=== PATIENT | male | born 1940 | race Caucasian/White ===

== ENCOUNTER → 2016-09-11 | Day surgery (SDC) | payer OTHER ==
[2016-08-05 11:23] VITALS: BMI 33.0
--- NOTE | 2016-08-05 11:53 | PAT Medication Instructions ---
Service Date Aug 05, 2016. Current Home Medication List Allopurinol (Zyloprim *), 300 MG PO QPM Aspirin Enteric Coated (Ecotrin Or Generic *), 81 MG PO QPM Furosemide (Lasix), 20 MG PO QAM Latanoprost 0.005% Oph (Xalatan 0.005% Oph), 1 DROP OPB HS Lisinopril (Zestril), 10 MG PO BID Nitroglycerin (Nitrostat), 0.4 MG UT PRN Omeprazole (Prilosec), 20 MG PO QAM Oxycodone/Acetaminophen 10MG/325MG (Percocet 10MG/325MG), 1 TAB PO Q6H PRN for N Potassium Chloride (Micro-K Ext Rel), 10 MEQ PO QPM Prednisone (Prednisone), 5 MG PO QAM Pregabalin (Lyrica), 150 MG PO QAM Rosuvastatin Calcium (Crestor), 10 MG PO QPM Sotalol HCl (Sotalol HCl), 80 MG PO BID Tamsulosin Hcl (Flomax *), 0.4 MG PO QAM Warfarin Sod (Coumadin), MONDAYS Warfarin Sod (Coumadin), 2.5 MG PO [id number] Medication Instructions For Your Scheduled Surgery - Check with surgeon/driver education road instructor for instructions: Warfarin Sod (Coumadin), MONDAYS Warfarin Sod (Coumadin), 2.5 MG PO [id number] Aspirin Enteric Coated (Ecotrin Or Generic *), 81 MG PO QPM - Hold the following medications the morning of surgery: Tamsulosin Hcl (Flomax *), 0.4 MG PO QAM Furosemide (Lasix), 20 MG PO QAM Lisinopril (Zestril), 10 MG PO BID - Take the following medications the morning of surgery with a sip of water: Sotalol HCl (Sotalol HCl), 80 MG PO BID Pregabalin (Lyrica), 150 MG PO QAM Prednisone (Prednisone), 5 MG PO QAM Omeprazole (Prilosec), 20 MG PO QAM Nitroglycerin (Nitrostat), 0.4 MG UT PRN (if needed) Oxycodone/Acetaminophen 10MG/325MG (Percocet 10MG/325MG), 1 TAB PO Q6H PRN for N (okay to take up to 4 hours prior to surgery if needed) - Hold the following medications as scheduled the night before surgery: Lisinopril (Zestril), 10 MG PO BID - Take the following medications as scheduled the night before surgery: Sotalol HCl (Sotalol HCl), 80 MG PO BID Rosuvastatin Calcium (Crestor), 10 MG PO QPM Potassium Chloride (Micro-K Ext Rel), 10 MEQ PO QPM Nitroglycerin (Nitrostat), 0.4 MG UT PRN (if needed) Oxycodone/Acetaminophen 10MG/325MG (Percocet 10MG/325MG), 1 TAB PO Q6H PRN for N (if needed) Latanoprost 0.005% Oph (Xalatan 0.005% Oph), 1 DROP OPB HS Allopurinol (Zyloprim *), 300 MG PO QPM If you have any questions please call us at [phone] (Nikki Frances PA-C) or [phone] or [phone]
[2016-08-05 12:23] LABS: BASO % 0.4 %; BASO ABS # 0.05 K/uL (0-0.2); COMPLETE YES; EOS % 0.6 %; HEMATOCRIT 41.9 % (42-52); IG% 0.4 %; LYMPH % 19.4 %; MEAN CORPUSCULAR HEMOGLOBIN 32.5 pg (25-34); MEAN CORPUSCULAR HGB CONC 32.2 g/dl (32-36); MEAN PLATELET VOLUME 8.8 fL (7.4-10.4); MONO % 10.3 %; NEUT % 68.9 %; PLATELET COUNT 184 K/uL (130-400); RED BLOOD COUNT 4.15 M/uL (4.7-6.1); WHITE BLOOD COUNT 11.32 K/uL (4.8-10.8)
[2016-08-05 12:26] LABS: URINE APPEARANCE CLOUDY (CLEAR); URINE BILIRUBIN NEG (NEG); URINE COLOR DK YELLOW; URINE EPITHELIAL CELL AUTO >30 /lpf (0-5); URINE NITRITE NEG (NEG); URINE PH 6.5 (4.5-7.5); UROBILINOGEN NEG (NEG)
[2016-08-05 12:27] LABS: MANUAL MICROSCOPIC REQUIRED? NO; REVIEW REQ? YES
[2016-08-05 12:31] LABS: INR 2.6 (0.9-1.1); PARTIAL THROMBOPLASTIN RATIO 1.3; PROTHROMBIN TIME (PATIENT) 28.5 SECONDS (9.0-12.0)
[2016-08-05 12:36] LABS: URINE MUCUS PRESENT (NONE PRSENT)
[2016-08-05 12:41] LABS: BUN/CREATININE RATIO 13.7 (10-20); CREATININE 1.2 mg/dl (0.60-1.40); POTASSIUM 4.4 mmol/L (3.5-5.1)
--- NOTE | 2016-08-24 21:02 | HISTORY & PHYSICAL EXAMINATION ---
DATE OF ADMISSION: 08/28/2016 SUBJECTIVE AND CHIEF COMPLAINT: Left knee pain. HISTORY OF PRESENT ILLNESS: The patient is a 76-year-old male who is here for left knee pain. He says that the pain is getting progressively worse over time. He describes the pain as aching, sharp and throbbing. The pain occurs more with twisting motions and going up and down stairs. He has had a few episodes with walking. He has failed conservative therapies of injections and physical therapy. He would like to proceed with surgical procedure. PAST MEDICAL HISTORY: Significant for heart attack in 2003, hypertension, hypercholesterolemia, sleep apnea, TIA x2, GERD, prostate cancer. PAST SURGICAL HISTORY: Bypass surgery, carpal tunnel release bilateral hands, right knee replacement, prostate seeds, cholecystectomy. SOCIAL HISTORY: He denies alcohol use, denies smoking or tobacco use. Denies IV drug use or illegal drug use. He lives in a 2-story house. He is currently retired. PAST FAMILY HISTORY: Dad had a heart attack. Brother also had a heart attack. MEDICATIONS: Prilosec 20 mg 1 capsule daily, allopurinol 300 mg 1 tab daily, lisinopril 10 mg 1 tab daily, Flomax 0.4 mg 1 tab daily, prednisone 5 mg 1 tab daily, sotalol 80 mg 1-1/2 tablets 2 times a day, furosemide 20 mg 1 tablet daily, Simcor 500 mg/40 mg 1 tablet daily, Coumadin 5 mg 1 tablet daily, Lyrica 150 mg 1 tab daily, Crestor 10 mg 1 tab daily. ALLERGIES: TO ADHESIVES, NIFEDIPINE, HEPARIN ANALOGUES AND AMIODARONE. REVIEW OF SYSTEMS: He denies fevers, chills, headaches, weight loss, double vision, blurry vision, sore throat, hearing loss, tremors, dizziness, numbness or tingling, tired, thirsty, hot and cold intolerance, abdominal pain, nausea, vomiting, diarrhea, heartburn, chest pain, swelling into the legs or feet, frequency going to the bathroom, pain or burning with urination, wheezing, cough, shortness of breath, depression, thoughts of harming himself or harm others, nervousness or anxiousness. He is positive for joint pain, stiffness and swelling of the left knee. OBJECTIVE: GENERAL APPEARANCE: The patient is a 76-year-old male sitting in no acute distress. He is well dressed, well nourished. He is awake, alert and oriented x3. PHYSICAL EXAMINATION: VITAL SIGNS: He is 5 feet 10 inches tall, 232 pounds. Blood pressure 141/76. HEENT: Extraocular movement is intact. PERRLA. Mucosa is moist. No septal deviation. NECK: Supple with no lymphadenopathy, no JVD, no thyromegaly. HEART: Asystolic murmur of grade 3 is noted in the aortic position. LUNGS: Clear to auscultation and distant. There is no wheezing or rhonchi. ABDOMEN: Soft, nontender, nondistended. Normal bowel sounds. No hepatosplenomegaly. EXTREMITIES: Paying particular attention to the left knee, he is able to extend to 0 degrees, flex to 90 degrees. He has pain along the medial and lateral joint lines. Positive Petra's test. Negative Savita. Negative anterior drawer. Negative posterior drawer. Negative valgus and varus stress tests. NEUROLOGIC: Cranial nerves II-XII are intact. Pulses were compared bilaterally and were equal. IMAGING: MRI of the left knee demonstrates tricompartmental degenerative changes including involvement of articular cartilage, degenerative meniscal signal bilaterally, tears of posterior horns medial and lateral meniscus suspected, question minimal strain medial collateral ligament, question element of prepatellar bursitis, possible Wagner/popliteal cyst. IMPRESSION: Left knee medial and lateral meniscal tears. PLAN: The patient is scheduled for a left knee PMM/PLM. He has tried conservative therapies which include cortisone injections, physical therapy, nonsteroidal anti-inflammatories without any relief. He would like to proceed with a left knee PMM and PLM. Risks and benefits to the surgery were discussed that were included but not limited to infection, DVT, pain, stiffness, need for revision surgery, failure to relieve all symptoms, progressive arthritis, damage to blood vessels, damage to nerves, and risks of anesthesia were all discussed and he wishes to proceed. All questions were answered to his satisfaction. Per his steam finisher, his warfarin should be held per the instructions of his surgeon, probably for 5 days. MTDD
--- NOTE | 2016-09-04 10:10 | HISTORY & PHYSICAL EXAMINATION ---
DATE OF ADMISSION: 09/11/2016 SUBJECTIVE AND CHIEF COMPLAINT: Left knee pain. HISTORY OF PRESENT ILLNESS: The patient is a 76-year-old male who is here for left knee pain. He says that the pain is getting progressively worse over time. He describes the pain as aching, sharp and throbbing. The pain occurs more with twisting motions and going up and down stairs. He has had a few episodes of locking with walking. He has failed conservative therapies of injections and physical therapy. He would like to proceed with surgical procedure. PAST MEDICAL HISTORY: Significant for a heart attack in 2003, hypertension, hypercholesterolemia, sleep apnea, TIA x2, GERD, and prostate cancer. PAST SURGICAL HISTORY: Bypass surgery, carpal tunnel release of bilateral hands, right knee replacement, prostate seeds, and cholecystectomy. SOCIAL HISTORY: He denies alcohol use. Denies smoking or tobacco use. Denies IV drug use or illegal drug use. Lives in a 2-story house. He is currently retired. PAST FAMILY HISTORY: Dad had a heart attack. Brother had a heart attack. MEDICATIONS: Prilosec 20 mg 1 capsule daily, allopurinol 300 mg 1 tab daily, lisinopril 10 mg 1 tab daily, Flomax 0.4 mg 1 tab daily, prednisone 5 mg 1 tab daily, sotalol 80 mg 1-1/2 tabs 2 times daily, furosemide 20 mg 1 tab daily, Simcor 500 mg/40 mg 1 tab daily, Coumadin 5 mg 1 tab daily, Lyrica 150 mg 1 tab daily, Crestor 10 mg 1 tab daily. ALLERGIES: TO ADHESIVES, NIFEDIPINE, HEPARIN ANALOGS, AND AMIODARONE. REVIEW OF SYSTEMS: He denies fevers, chills, headaches, weight loss, double vision, blurry vision, sore throat, hearing loss, tremors, dizziness, numbness or tingling, tired, thirsty, hot and cold intolerance, abdominal pain, nausea, vomiting, diarrhea, heartburn, chest pain, swelling into the legs or feet, frequency going to the bathroom, pain or burning with urination, wheezing, cough, shortness of breath, depression, thoughts to harm himself or harm others, nervousness or anxiousness. He is positive for joint pain, stiffness and swelling of the left knee. OBJECTIVE: GENERAL APPEARANCE: The patient is a 76-year-old male who is sitting in the exam room, in no acute distress. He is well dressed, well nourished. He is awake, alert and oriented x3. PHYSICAL EXAMINATION: VITAL SIGNS: He is 5 feet 10 inches tall, 232 pounds. Blood pressure 141/76. HEENT: Extraocular movements are intact. PERRLA. Mucosa is moist. No septal deviation. NECK: Supple with no lymphadenopathy, no JVD, no thyromegaly. HEART: A systolic murmur of grade 3 is noted in the aortic position. LUNGS: Clear to auscultation and distant. No wheezing or rhonchi. ABDOMEN: Soft, nontender, nondistended. Normal bowel sounds. No hepatosplenomegaly. EXTREMITIES: Paying particular attention to the left knee, he is able to extend to 0 degrees, flex to 90 degrees actively. He has pain along the medial and lateral joint line. He has a positive Petra's test. Negative Savita, anterior drawer, posterior drawer. He has negative valgus and varus stress test. NEUROLOGIC: Cranial nerves II-XII are intact. Pulses were compared bilaterally and were equal. IMAGING: MRI of the left knee demonstrates tricompartmental degenerative changes including involvement of the articular cartilage, degenerative meniscal signal bilaterally, tears of the posterior horns medially and laterally of the meniscus are suspected, question minimal strain medial collateral ligament, question element of prepatellar bursitis, possible Wagner cyst. IMPRESSION: Left knee medial and lateral meniscal tears. PLAN: The patient is scheduled to have a left knee PMM/PLM. He has tried conservative therapies which include cortisone injections, physical therapy, and nonsteroidal anti-inflammatories without any relief. He would like to proceed with a left knee arthroscopy, PMM/PLM. Risks and benefits to surgery were discussed that included but not limited to infection, DVT, pain, stiffness, need for revision surgeries, failure to relieve all symptoms, progressive arthritis, damage to blood vessels, damage to nerves, and risks of anesthesia were all discussed and he wishes to proceed. All questions were answered to his satisfaction. Per his icebox man, his warfarin should be held for 5 days prior to his surgery. EVY
[~2016-09-11] VITALS: Ht 177.8 cm; Wt 104.5 kg
[~2016-09-11] MED LIST: ACETAMINOPHEN 325 MG TAB PO PRN; ALL300 PO; ASPEC81 PO; ATROPINE SULFATE 0.1 MG/ML 5ML SYR IV PRN; BTP80 PO; BUPIVACAINE 0.5 % 5 MG/1 ML MPF 30ML VIAL ONE; CEFAZOLIN 2000 MG/60 ML D5W IV SCH; CMD/25 PO; CMD5; CRS/10 PO; DEXAMETHASONE SOD INJ 4 MG/ML VIAL ONE; EpHEDrine SULFATE INJ 50 MG/ML AMP IV PRN; EpHEDrine SULFATE INJ 50 MG/ML AMP ONE; FENTANYL CITRATE INJ 50 MCG/1 ML 2 ML VIAL IV PRN; FENTANYL CITRATE INJ 50 MCG/1 ML 2 ML VIAL ONE; FLM4 PO; FURO-85 PO; LACTATED RINGER'S 1000ML 1,000 ML IV SCH; LATA0.009 OPB; LIDOCAINE HCL 2% 2 ML VIAL (20MG/ML) ONE; LIDOCAINE/EPINEPHRINE 1% 20 ML VIAL ONE; LISI-461 PO; MIDAZOLAM HCL 1 MG/ML 2ML VIAL ONE; NTRGSL/4 UT; ONDANSETRON INJ 2 MG/ML 2 ML VIAL IV PRN; ONDANSETRON INJ 2 MG/ML 2 ML VIAL ONE; OXYC-106 PO; OXYCODONE HCL IR 5 MG TAB (IMMEDIATE RELEASE) PO PRN; PHENYLEPHRINE HCL INJ 10 MG/ML VIAL ONE; POTA10CA28 PO; PRED-301 PO; PREG1CAP70 PO; PRLSR20 PO; PROPOFOL IV EMULSION 10 MG/ML 20 ML VIAL IV ONE; RXC5 PO
[2016-09-11 11:58] VITALS: BP 156/78; PULSE 67; TEMP 36.7; O2SAT 97; Ht 177.8 cm; Wt 104.5 kg
[2016-09-11 12:17] LABS: INR 1.2 (0.9-1.1); PARTIAL THROMBOPLASTIN RATIO 1.2; PROTHROMBIN TIME (PATIENT) 12.7 SECONDS (9.0-12.0)
--- NOTE | 2016-09-11 12:32 | History & Physical Bridge Note ---
H&P Re-Evaluation Bridge Note: I have examined the patient, reviewed the History & Physical and in the interval since the performance of the History & Physical I have noted the following changes of clinical significance: No changes noted
--- NOTE | 2016-09-11 14:28 | [facility] Post Operative Brief Note ---
Immediate Operative Summary Operative Date Sep 11, 2016. Pre-Operative Diagnosis Left knee medial and lateral meniscal tears Post-Operative Diagnosis same as preoperative diagnosis Procedure(s) Performed Left Knee Arthroscopy with Partial Medial and Lateral Menisectomies Surgeon Dr. Cobian Photography Colorist Surgeon(s) 0 Estimated Blood Loss 1ml Findings above Specimens none Drains 0 Anesthesia geta Complication(s) None Disposition Recovery Room / PACU
--- NOTE | 2016-09-11 14:34 | Discharge Instructions ---
Discharge Instructions Date of Service Sep 11, 2016. Admission Reason for Admission: Left Knee Medial Meniscus Tear, Lateral Meniscus T Discharge Discharge Diagnosis / Problem: Left knee medial and lateral menisectomy Discharge Goals Goal(s): Decrease discomfort, Improve function Activity Recommendations Activity Limitations: per Instructions/Follow-up section . Instructions / Follow-Up Instructions / Follow-Up ACTIVITY RECOMMENDATIONS: * You may walk on the leg with or without crutches as comfort permits. * Bending of the knee should start at once. * Do not shower for 48 hours following surgery. SPECIAL CARE INSTRUCTIONS: * You may cleanse the skin adjacent to the small wounds with soap and water at the time of the first dressing change. * The application of an ice bag to the front and sides of the knee will decrease swelling and discomfort for the first 48 hours. * The small incisions may be sore and develop bruising. This bruising does not require any special care. SPECIAL PRECAUTIONS: * If you experience unusual pain unrelieved by prescriptions, temperature elevation (100 degrees F. or above) or progressive swelling or bleeding, you should contact our office at for further evaluation. * You may have been prescribed pain medication. If you experience nausea and/or fine skin rash, discontinue this medication and contact our office at for an alternate medication. DRESSING: * Dressing should be comfortable and absorb any leakage of fluid and/or blood. * The dressing may become moist or bloodstained. * Dressing may be removed 48 hours after surgery and bandaids placed over the small surgical incisions. If can be removed sooner if it becomes very soiled or loose. * Bandaids may be used over next several days as needed and can be discontinued when there is not further drainage from the wounds. FOLLOW UP VISIT: If appointment is not already scheduled: Please call [facility] to make a follow-up appointment for your surgery at 10-14 days after your surgery. Current Hospital Diet Patient's current hospital diet: Regular Diet Discharge Diet Recommended Diet: Regular Diet Procedures Procedures Performed: Left Knee Arthroscopy with Partial Medial and Lateral Menisectomies Pending Studies Studies pending at discharge: no Medical Emergencies . Who to Call and When: Medical Emergencies: If at any time you feel your situation is an emergency, please call 911 immediately. . Non-Emergent Contact Non-Emergency issues call your: Surgeon Call Non-Emergent contact if: temperature is above 101, your pain is worsening , wound has increased drainage, wound has increased redness . "Provider Documentation" section prepared by Garrett Westbrook. VTE Core Measure Inpt VTE Proph given/why not?: Treatment not indicated [place] Drug Monitoring Program Search Results: patient reviewed within database, no issues identified
--- NOTE | 2016-09-11 15:13 | Anesthesiology Progress Note ---
Anesthesia Post Op Note Date & Time Sep 11, 2016 at 15:13 Vital Signs Pain Intensity: 0 Vital Signs Past 12 Hours Date Time Temp Pulse Resp B/P Pulse Ox O2 Delivery O2 Flow Rate FiO2 09/11/16 15:07 36.5 57 16 126/83 95 Nasal Cannula 2 09/11/16 15:06 58 18 09/11/16 15:06 58 18 94 09/11/16 15:05 126/83 09/11/16 15:01 62 19 09/11/16 15:01 63 19 125/77 90 09/11/16 15:00 141/98 09/11/16 14:56 60 16 09/11/16 14:56 63 16 97 09/11/16 14:55 118/76 09/11/16 14:51 60 12 97 09/11/16 14:51 60 12 09/11/16 14:50 63 17 09/11/16 14:50 65 17 137/69 96 09/11/16 14:45 63 21 115/76 97 09/11/16 14:45 61 21 09/11/16 14:40 62 14 09/11/16 14:40 62 14 117/74 96 09/11/16 14:35 36.4 60 15 109/77 96 Mask 10 09/11/16 14:35 63 13 97 09/11/16 14:35 64 13 09/11/16 11:58 36.7 67 18 156/78 97 Room Air Notes Mental Status: alert / awake / arousable, participated in evaluation Pt Amnestic to Procedure: Yes Nausea / Vomiting: adequately controlled Pain: adequately controlled Airway Patency, RR, SpO2: stable & adequate BP & HR: stable & adequate Hydration State: stable & adequate Anesthetic Complications: no major complications apparent
--- NOTE | 2016-09-11 15:17 | OPERATIVE REPORT ---
DATE OF OPERATION: 09/11/2016 PREOPERATIVE DIAGNOSES: Left knee medial meniscal tear, lateral meniscal tear. POSTOPERATIVE DIAGNOSES: Same. PROCEDURES: Left knee partial medial meniscectomy, partial lateral meniscectomy. SURGEON: Dr. Cobian. BARREL RAISER HELPER: None. ANESTHESIA: General endotracheal anesthesia. SPECIMENS: None. COMPLICATIONS: None. ESTIMATED BLOOD LOSS: Minimal. INDICATIONS: The patient is a 76-year-old male with progressively left knee pain. He has failed conservative measures including injection and rehab. Failing conservative measures, he wished to proceed with arthroscopy. Risks, benefits, and alternatives of surgery including but not limited to infection, DVT, pain, stiffness, need for revision surgery, failure to relieve all symptoms, damage to blood vessels, damage to nerves, risks of anesthesia were discussed with the patient and he wished to proceed. DESCRIPTION OF PROCEDURE: The patient was identified, laterality was confirmed and marked. He received a preoperative antibiotic. He was transferred to the operating room, placed in the supine position, induced general endotracheal anesthesia. A well-padded tourniquet was placed on the thigh but not utilized during the case. Port sites were anesthetized with 1% lidocaine with epinephrine. I made a standard anterolateral room for made a stab incision, bluntly entered the suprapatellar pouch and spinal localization established anteromedial portal. He had grade 4 change both of the patella as well as the trochlea. He had grade 3 change with some deviating and significant degeneration a small region of grade 4 change in the cartilage of the medial femoral condyle, grade 2 change of cartilage of the medial tibial plateau. Undersurface horizontal cleavage type tear of the posterior horn of the medial meniscus. This was debrided back to a stable base utilizing a shaver. The ACL and PCL were intact. He had degenerative tearing of the posterior body and anterior horn of the lateral meniscus. This was debrided back to a stable base utilizing a shaver. All instrumentation was then removed from the knee. Portal sites were closed with nylon. Sterile dressing was applied. All needle and sponge counts were correct at the end of the procedure. The patient was transferred to the PACU in stable condition without apparent complication. I attest to the content of the Intraoperative Record and any orders documented therein. Any exceptio ns are noted below.
[2016-09-11 15:20] VITALS: BP 134/66; PULSE 60; TEMP 36.6; O2SAT 92
[2016-09-11 15:50] VITALS: BP 117/60; PULSE 57; O2SAT 98
[2016-09-11 16:20] VITALS: BP 125/68; PULSE 67; TEMP 36.4; O2SAT 95
== END | disposition home or self-care (01) ==
LOC: C.ACU 11:31
PROVIDERS: ATTEND Orthopaedic Surgery
DX: M23.242 Derangement of anterior horn of lateral meniscus due to old tear or injury, left knee (principal); M23.262 Derangement of other lateral meniscus due to old tear or injury, left knee; M23.222 Derangement of posterior horn of medial meniscus due to old tear or injury, left knee; I25.10 Atherosclerotic heart disease of native coronary artery without angina pectoris; I25.2 Old myocardial infarction; I10 Essential (primary) hypertension; I48.91 Unspecified atrial fibrillation; E78.00 Pure hypercholesterolemia, unspecified; M10.9 Gout, unspecified; K21.9 Gastro-esophageal reflux disease without esophagitis; G47.33 Obstructive sleep apnea (adult) (pediatric); Z86.73 Personal history of transient ischemic attack (TIA), and cerebral infarction without residual deficits; Z98.890 Other specified postprocedural states; Z95.1 Presence of aortocoronary bypass graft; Z68.33 Body mass index [BMI] 33.0-33.9, adult; Z98.41 Cataract extraction status, right eye; Z98.42 Cataract extraction status, left eye; Z96.651 Presence of right artificial knee joint; Z85.46 Personal history of malignant neoplasm of prostate; Z90.49 Acquired absence of other specified parts of digestive tract; Z79.899 Other long term (current) drug therapy; Z79.01 Long term (current) use of anticoagulants; E66.9 Obesity, unspecified; Z82.49 Family history of ischemic heart disease and other diseases of the circulatory system; Z80.42 Family history of malignant neoplasm of prostate

== ENCOUNTER 2017-10-01 05:09 | Inpatient (IN) | payer OTHER ==
[2017-08-31 14:01] VITALS: BMI 35.0
--- NOTE | 2017-08-31 14:43 | PAT Medication Instructions ---
Service Date Aug 31, 2017. Current Home Medication List Allopurinol (Zyloprim), 300 MG PO QPM Aspirin (Aspirin Ec), 81 MG PO QPM Furosemide (Lasix), 20 MG PO QAM Hydrocodone/Acetaminophen 10MG/325MG ([place] 10MG/325MG), 1 TAB PO Q6-8H Latanoprost (Xalatan 0.005% Oph Kimberly), 1 DROPS OP HS Lisinopril (Zestril), 10 MG PO BID Nitroglycerin (Nitrostat), 0.4 MG UT PRN Omeprazole (Prilosec), 20 MG PO QAM Prednisone (Prednisone), 5 MG PO QAM Pregabalin (Lyrica), 200 MG PO NOON Rosuvastatin Calcium (Crestor), 10 MG PO QPM Sotalol HCl (Sotalol HCl), 80 MG PO BID Tamsulosin Hcl (Flomax), 0.4 MG PO QAM Warfarin Sod (Coumadin), MONDAYS Warfarin Sod (Coumadin), 2.5 MG PO [id number] [Potassium Citrate], 10 MG PO QPM Medication Instructions For Your Scheduled Surgery -Continue as directed: Nitroglycerin (Nitrostat), 0.4 MG UT PRN -Follow your instructions from the [facility]: Warfarin Sod (Coumadin), MONDAYS Warfarin Sod (Coumadin), 2.5 MG PO [id number] - Hold the following medications 24 hours prior to surgery: Lisinopril (Zestril), 10 MG PO BID - Hold the following medications the morning of surgery: Furosemide (Lasix), 20 MG PO QAM Tamsulosin Hcl (Flomax), 0.4 MG PO QAM - Take the following medications the morning of surgery with a sip of water: Hydrocodone/Acetaminophen 10MG/325MG ([place] 10MG/325MG), 1 TAB PO Q6-8H (if needed, can be taken up to four hours before surgery) Omeprazole (Prilosec), 20 MG PO QAM Prednisone (Prednisone), 5 MG PO QAM Sotalol HCl (Sotalol HCl), 80 MG PO BID - Take the following medications as scheduled the night before surgery: Allopurinol (Zyloprim), 300 MG PO QPM Aspirin (Aspirin Ec), 81 MG PO QPM Hydrocodone/Acetaminophen 10MG/325MG ([place] 10MG/325MG), 1 TAB PO Q6-8H (if needed) Latanoprost (Xalatan 0.005% Oph Kimberly), 1 DROPS OP HS Pregabalin (Lyrica), 200 MG PO NOON Rosuvastatin Calcium (Crestor), 10 MG PO QPM Sotalol HCl (Sotalol HCl), 80 MG PO BID [Potassium Citrate], 10 MG PO QPM If you have any questions please call us at [phone] or [phone] or [phone]
[2017-08-31 15:19] LABS: BASO % 0.4 %; BASO ABS # 0.04 K/uL (0-0.2); EOS % 0.7 %; EOS ABS # 0.07 K/uL (0-0.5); HEMATOCRIT 40.1 % (42-52); HEMOGLOBIN 12.9 g/dL (14.0-18.0); IG# 0.04 K/uL (0.00-0.02); LYMPH % 23.4 %; LYMPH ABS # 2.42 K/uL (1.2-3.4); MEAN CELL VOLUME 98.3 fL (80-100); MEAN CORPUSCULAR HEMOGLOBIN 31.6 pg (25-34); MEAN CORPUSCULAR HGB CONC 32.2 g/dl (32-36); MEAN PLATELET VOLUME 8.4 fL (7.4-10.4); MONO % 6.9 %; MONO ABS # 0.71 K/uL (0.11-0.59); NEUT % 68.2 %; NEUT ABS # 7.06 K/uL (1.4-6.5); PLATELET COUNT 213 K/uL (130-400); RED CELL DISTRIBUTION WIDTH CV 16.9 % (11.5-14.5); RED CELL DISTRIBUTION WIDTH SD 60.3 fL (36.4-46.3); WHITE BLOOD COUNT 10.34 K/uL (4.8-10.8)
[2017-08-31 15:34] LABS: PTT PATIENT 35.5 SECONDS (21.0-31.0)
--- NOTE | 2017-08-31 15:46 | DIAGNOSTIC IMAGING REPORT ---
TWO VIEW CHEST CLINICAL HISTORY: Preoperative examination. FINDINGS: PA and lateral chest radiographs are compared to study dated 01/02/2016. The patient is status post midline sternotomy. The heart is enlarged and there is atherosclerotic calcification with uncoiling of the thoracic aorta. The pulmonary vasculature is noncongested. Chronic interstitial thickening is similar to previous. No airspace consolidation or pleural effusion is identified. There is no pneumothorax. The skeletal structures are osteopenic. Degenerative changes noted in the thoracic spine and shoulders. Postoperative change is seen in the right shoulder. Surgical clips are noted in the upper abdomen. IMPRESSION: Cardiomegaly with no active disease in the chest. Electronically signed by: Farhad Suarez M.D. 08/31/2017 3:44 PM Dictated Date/Time: 08/31/2017 3:43 PM
[2017-08-31 15:59] LABS: ALBUMIN 3.9 gm/dl (3.4-5.0); CALCIUM 9.4 mg/dl (8.5-10.1); CREATININE 1.3 mg/dl (0.60-1.40); POTASSIUM 4.4 mmol/L (3.5-5.1)
[2017-09-01 05:42] LABS: HEMOGLOBIN A1C 5.7 % (4.5-5.6)
--- NOTE | 2017-09-22 08:30 | History and Physical ---
History & Physical Date Sep 22, 2017. Chief Complaint left shoulder pain History of Present Illness The patient is a 77 year old male with complaints of left shoulder pain for several years. He has tried conservative therapy with minimal relief. He would like to proceed with scheduled surgery. 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 Surgical Problems: (1) H/O cataract removal with insertion of prosthetic lens (2) H/O umbilical hernia repair (3) History of carpal tunnel surgery (4) History of cholecystectomy (5) Hx of total knee arthroplasty (6) S/P CABG x 2 (7) S/P lumbar spinal fusion (8) S/P rotator cuff repair Allergies Coded Allergies: Amiodarone (Verified Allergy, Unknown, unknown, 09/11/16) Heparin (Verified Allergy, Unknown, PATIENT HAD SYNCOPAL EVENT AFTER HEPARIN INJECTION, 09/11/16) Adhesives (Verified Adverse Reaction, Mild, RASH WITH SOME BANDAIDS, ) Nifedipine (Verified Adverse Reaction, Unknown, DIZZINESS, 09/11/16) Home Medications Scheduled Allopurinol (Zyloprim), 300 MG PO QPM Aspirin (Aspirin Ec), 81 MG PO QPM Furosemide (Lasix), 20 MG PO QAM Hydrocodone/Acetaminophen 10MG/325MG ([place]ord 10MG/325MG), 1 TAB PO Q6-8H Latanoprost (Xalatan 0.005% Oph Kimberly), 1 DROPS OP HS Lisinopril (Zestril), 10 MG PO BID Nitroglycerin (Nitrostat), 0.4 MG UT PRN Omeprazole (Prilosec), 20 MG PO QAM Prednisone (Prednisone), 5 MG PO QAM Pregabalin (Lyrica), 200 MG PO NOON Rosuvastatin Calcium (Crestor), 10 MG PO QPM Sotalol HCl (Sotalol HCl), 80 MG PO BID Tamsulosin Hcl (Flomax), 0.4 MG PO QAM Warfarin Sod (Coumadin), MONDAYS Warfarin Sod (Coumadin), 2.5 MG PO [id number] [Potassium Citrate], 10 MG PO QPM Physical Examination Skin: warm/dry, no rash Eyes: normal inspection, EOMI ENT: normal ENT inspection Head: normocephalic, atraumatic Neck: supple, no adenopathy Respiratory/Chest: lungs clear, normal breath sounds Cardiovascular: regular rate, rhythm Abdomen / GI: normal bowel sounds, non tender Extremities: normal inspection, + pertinent finding (decreased ROM due to pain. decreased strength due to pain) Neurologic/Psych: no motor/sensory deficits, alert, oriented x 3 Diagnosis Left shoulder rotator cuff arthropathy Plan of Treatment Patient is scheduled for left Reverse total shoulder arthroplasty. He has failed conservative therapy and would like to proceed with scheduled surgery. Risks and benefits to surgery were discussed with the patient. He understands these risks and wishes to proceed. All questions were answered to his satisfaction.
[~2017-10-01] VITALS: Ht 177.8 cm; Wt 110.0 kg
[2017-10-01] VITALS (10 sets, daily range): BP systolic 95–147; BP diastolic 61–97; PULSE 62–83; TEMP 36.4–36.7; O2SAT 83–100; BMI 35.0
[~2017-10-01 05:09] MED LIST changes: -ACETAMINOPHEN 325 MG TAB PO PRN; -ALL300 PO; +ALLO300T2 PO; -ASPEC81 PO; +ASPI81TA28 PO; -ATROPINE SULFATE 0.1 MG/ML 5ML SYR IV PRN; -BUPIVACAINE 0.5 % 5 MG/1 ML MPF 30ML VIAL ONE; -CEFAZOLIN 2000 MG/60 ML D5W IV SCH; -DEXAMETHASONE SOD INJ 4 MG/ML VIAL ONE; -EpHEDrine SULFATE INJ 50 MG/ML AMP IV PRN; -EpHEDrine SULFATE INJ 50 MG/ML AMP ONE; -FENTANYL CITRATE INJ 50 MCG/1 ML 2 ML VIAL IV PRN; -FENTANYL CITRATE INJ 50 MCG/1 ML 2 ML VIAL ONE; -FLM4 PO; +HYDR-4079 PO; -LACTATED RINGER'S 1000ML 1,000 ML IV SCH; +LATA0.009 OP; -LATA0.009 OPB; -LIDOCAINE HCL 2% 2 ML VIAL (20MG/ML) ONE; -LIDOCAINE/EPINEPHRINE 1% 20 ML VIAL ONE; -MIDAZOLAM HCL 1 MG/ML 2ML VIAL ONE; -ONDANSETRON INJ 2 MG/ML 2 ML VIAL IV PRN; -ONDANSETRON INJ 2 MG/ML 2 ML VIAL ONE; -OXYC-106 PO; -OXYCODONE HCL IR 5 MG TAB (IMMEDIATE RELEASE) PO PRN; -PHENYLEPHRINE HCL INJ 10 MG/ML VIAL ONE; -POTA10CA28 PO; +POTASSIUM CITRATE PO; -PROPOFOL IV EMULSION 10 MG/ML 20 ML VIAL IV ONE; -RXC5 PO; +TAMS0.4C38 PO
[2017-10-01] MEDS ORDERED: ROPIVACAINE 5MG/ML 30 ML 150 MG, BUPIVACAINE 0.5% MPF INJ 30 ML, EpINEphrine HCL INJ 0.... INFIL SCH ×8 (06:00)
[2017-10-01] MEDS ORDERED: OXYCODONE HCL 10 MG TABCR (OXYCONTIN) PO SCH (06:00)
[2017-10-01] MEDS ORDERED: METOCLOPRAMIDE HCL 10 MG TAB PO SCH (06:00)
[2017-10-01] MEDS ORDERED: ACETAMINOPHEN 500 MG TAB PO SCH (06:00)
[2017-10-01] MEDS ORDERED: CEFAZOLIN 2000MG IV PUSH 15 ML IV SCH ×2 (06:00)
[2017-10-01] MEDS ORDERED: LACTATED RINGER'S 1000ML 1,000 ML IV SCH (06:00)
[2017-10-01] MEDS ORDERED: CeleBREX 200 MG CAP PO SCH (06:00)
[2017-10-01] MEDS ORDERED: DEXAMETHASONE 4 MG TAB PO SCH (06:00)
[2017-10-01] MEDS ORDERED: FAMOTIDINE 20 MG TAB PO SCH (06:00)
[2017-10-01] MEDS ORDERED: LACTATED RINGER'S 1000ML IV SCH (06:00)
[2017-10-01] MEDS ORDERED: GABAPENTIN 300 MG CAP PO SCH (06:00)
[2017-10-01 06:14] LABS: INR 1.3 (0.9-1.1); PTT PATIENT 29.3 SECONDS (21.0-31.0)
[2017-10-01] MEDS ORDERED: ROPIVACAINE 0.5% 5 MG/ML 30 ML VIAL ONE (06:15)
[2017-10-01] MEDS ORDERED: ENOX120I SQ ×2 (06:22→06:23)
[2017-10-01] MEDS ORDERED: ORTHO JOINT ANESTHETIC ONE (06:42)
[2017-10-01] MEDS ORDERED: POVIDONE-IODINE OP SOLN 30 ML BTL ONE (06:42)
[2017-10-01] MEDS ORDERED: VANCOMYCIN HCL 1000MG/20ML VIAL ONE (06:42)
[2017-10-01] MEDS ORDERED: BACITRACIN 50000 UNIT VIAL ONE (06:42)
[2017-10-01] MEDS ORDERED: THROMBIN FOR SOLN 20000 UNIT KIT ONE (06:42)
[2017-10-01] MEDS ORDERED: FENTANYL CITRATE INJ 50 MCG/1 ML 2 ML VIAL ONE (06:43)
[2017-10-01] MEDS ORDERED: MIDAZOLAM HCL 1 MG/ML 2ML VIAL ONE (06:43)
[2017-10-01] MEDS ORDERED: KETOROLAC TROMETHAMINE 30 MG/ML VIAL IV. PRN (07:45)
[2017-10-01] MEDS ORDERED: LABETALOL HCL IV 5 MG/ML 20ML IV PRN (07:45)
[2017-10-01] MEDS ORDERED: ONDANSETRON INJ 2 MG/ML 2 ML VIAL IV PRN ×2 (07:45→09:45)
[2017-10-01] MEDS ORDERED: ATROPINE SULFATE 0.1 MG/ML 5ML SYR IV PRN (07:45)
[2017-10-01] MEDS ORDERED: HYDROmorphone INJ 2 MG/ML SYR/VIAL IV PRN (07:45)
[2017-10-01] MEDS ORDERED: ROCURONIUM BROMIDE 10 MG/ML 5 ML VIAL IV ONE (08:12)
[2017-10-01] MEDS ORDERED: PHENYLEPHRINE 100MCG/ML 5ML SYR ONE (08:12)
[2017-10-01] MEDS ORDERED: PROPOFOL IV EMULSION 10 MG/ML 20 ML VIAL IV ONE (08:12)
[2017-10-01] MEDS ORDERED: ETOMIDATE 2 MG/ML 20 ML VIAL IV ONE (08:12)
[2017-10-01] MEDS ORDERED: EpHEDrine SULFATE INJ 50 MG/ML AMP ONE (08:12)
[2017-10-01] MEDS ORDERED: EpHEDrine SULFATE 50MG/5ML SYR ONE (08:12)
[2017-10-01] MEDS ORDERED: GLYCOPYRROLATE INJ 0.2 MG/ML VIAL ONE (08:24)
--- NOTE | 2017-10-01 09:13 | [facility] Operative Report ---
Operative Report Operative Date Oct 01, 2017. Pre-Operative Diagnosis Left shoulder rotator cuff arthropathy Post-Operative Diagnosis Left shoulder rotator cuff arthropathy Procedure(s) Performed Left reverse total shoulder arthroplasty Surgeon Dr. Cobian Search Lead Surgeon(s) Garrett Westbrook PA-C Estimated Blood Loss 100cc Findings As above Specimens A. Left humeral head Drains 1 Hemovac Anesthesia Type General Regional Complication(s) none Disposition Recovery Room / PACU Indications The patient is a 77-year-old male long-standing left shoulder. X-rays demonstrate significant humeral elevation consistent with rotator cuff arthropathy. He has failed conservative measures only injection. He is on Coumadin and cannot take NSAIDs. He wishes to proceed with a left reverse total shoulder arthroplasty. Description of Procedure Risks, benefits and alternatives to surgery including, but not limited to, infection DVT, pain, stiffness, need for revision surgery, failure to relieve all symptoms, damage to blood vessels, damage to nerves, risk of anesthesia were discussed with the patient and they wished to proceed. The patient was identified. Laterality was confirmed and marked. The patient received a preoperative antibiotic as well as an interscalene block. They were transferred to the operating room and placed in the supine position and induced into general endotracheal anesthesia per the anesthesia staff. The patient was then safely transferred to a slight beachchair position. The patient was secured in the [employer]et positioner. All pressure points were well padded. The shoulder was prepped and draped in the usual sterile manner with ChloraPrep. The arm was secured in the Spider ellis. I made a longitudinal incision just lateral to the coracoid, sharply incising through the skin and utilizing Bovie electrocautery to achieve hemostasis. I identified the cephalic vein and mobilized it laterally with the deltoid. I mobilize the pectoralis and mobilize this medially releasing a small portion of the upper border of the pec tendon to improve visualization. I then identified and mobilized the conjoined tendon. I identified the long head of the biceps tendon. I then released the subscapularis. I pinned into place my humeral head version cutting guide and made my humeral head resection. I then sequentially reamed and sequentially broached. I then placed the trial humeral stem into the shoulder. I placed retractors around the glenoid and then excised the residual biceps tendon stump and glenoid labrum. I elevated the soft tissues and the inferior aspect of the glenoid to improve exposure and released tissues circumferentially. I then positioned and drilled for the central post for the glenoid plate. The glenoid plate was bone grafted with bone taken from the humeral head. I impacted the definitive glenoid plate into position and then placed a total of 4 compression screws that were then locked into position with locking caps. I then placed the glenosphere onto the plate and secured it with a locking screw. I then removed the trial humeral stem and placed the definitive humeral stem. I trialed off of the definitive stem. The definitive components used were [employer] Equinox: Humeral press-fit stem: 13 Standard glenoid plate Glenosphere: 38 Humeral tray:+ 0 Humeral polyethylene liner: + 0 I thoroughly irrigated the wound. Deep tissues were anesthetized with an orthomix solution. I then locked my definitive humeral tray into position with a torque limiting screw. I then impacted the definitive humeral polyethylene liner into position. I then reduced the shoulder. There was good range of motion and good stability after the reduction. The wound was again thoroughly irrigated and a Betadine soak was performed. A deep drain was placed. The deltopectoral interval was closed with interrupted #1 Ethibond suture. The subcutaneous tissue was closed with interrupted 2-0 Vicryl suture. The skin was closed with francisco. A sterile dressing was applied. A sling was placed. All needle and sponge counts were correct at the end of the procedure. The patient was transferred to the PACU in stable condition without apparent complication. The PA-C was necessary for assistance with procedure for assistance in positioning, prepping, draping, retraction and closure. I attest to the content of the Intraoperative Record and any orders documented therein. Any exceptions are noted below.
[2017-10-01] MEDS ORDERED: ZOLPIDEM TARTRATE 5 MG TAB PO PRN (09:45)
[2017-10-01] MEDS ORDERED: NITROGLYCERIN 0.4 MG SL PER TAB CHARGE UT PRN (09:45)
[2017-10-01] MEDS ORDERED: SOD PHOSPHATE/SOD BIPHOSPHATE ENEMA 132 ML BTL PR PRN (09:45)
[2017-10-01] MEDS ORDERED: BISACODYL 10 MG SUPP PR PRN (09:45)
[2017-10-01] MEDS ORDERED: MAGNESIUM HYDROXIDE SUSP 30 ML UDC PO PRN (09:45)
[2017-10-01] MEDS ORDERED: ALUMINUM/MAGNESIUM SUSP 30 ML UDC PO PRN (09:45)
--- NOTE | 2017-10-01 10:34 | Anesthesiology Progress Note ---
Anesthesia Post Op Note Date & Time Oct 01, 2017 at 10:34 Vital Signs Pain Intensity: 0 Vital Signs Past 12 Hours Date Time Temp Pulse Resp B/P (MAP) Pulse Ox O2 Delivery O2 Flow Rate FiO2 10/01/17 10:20 77 16 120/78 97 Nasal Cannula 4 10/01/17 10:10 64 15 117/88 95 Nasal Cannula 4 102/52 10/01/17 10:00 68 14 120/78 97 Oxymask 10 10/01/17 09:50 69 14 117/83 97 Oxymask 10 10/01/17 09:41 36.0 76 14 119/72 99 Oxymask 10 10/01/17 05:36 36.7 67 20 147/80 93 Room Air Notes Mental Status: alert / awake / arousable, participated in evaluation Pt Amnestic to Procedure: Yes Nausea / Vomiting: adequately controlled Pain: adequately controlled Airway Patency, RR, SpO2: stable & adequate BP & HR: stable & adequate Hydration State: stable & adequate Anesthetic Complications: no major complications apparent
--- NOTE | 2017-10-01 11:05 | DIAGNOSTIC IMAGING REPORT ---
L SHOULDER MIN 2 VIEWS ROUTINE CLINICAL HISTORY: Post shoulder surgery COMPARISON: None FINDINGS: Note is made of left basilar opacity. Alignment of the reverse total left shoulder arthroplasty is anatomic. There is no fracture or unexpected radiopaque foreign body. There are skin francisco. IMPRESSION: 1. Expected findings following left shoulder arthroplasty. 2. Left basilar opacity which could reflect atelectasis or consolidation. Electronically signed by: Oz Blevins M.D. 10/01/2017 11:03 AM Dictated Date/Time: 10/01/2017 11:02 AM
[2017-10-01] MEDS: POTASSIUM CHLORIDE INJ 10 MEQ in SODIUM CHLORIDE 0.9% 1000ML 1,000 ML IV SCH ×2 (12:17→21:59)
[2017-10-01] MEDS: FERROUS GLUCONATE 324 MG TAB PO SCH ×2 (12:39→17:54)
[2017-10-01] MEDS: CEFAZOLIN IV 2,000 MG in SYRINGE 0 ML IV SCH ×2 (14:14→22:28)
[2017-10-01] MEDS: ACETAMINOPHEN 500 MG TAB PO SCH ×2 (14:14→22:00)
[2017-10-01] MEDS ORDERED: POTATAB2 PO (14:34)
[2017-10-01] MEDS ORDERED: ERGO500011 PO (14:43)
[2017-10-01] MEDS: WARFARIN SOD 2.5 MG TAB PO SCH (15:32)
[2017-10-01] MEDS: PREGABALIN 100 MG CAP PO SCH (15:32)
--- NOTE | 2017-10-01 16:42 | Medical Consult ---
Consultation Date of Consultation: Oct 01, 2017. Attending Physician: Xavier Cobian M.D. Reason for Consultation: Postoperative medical management History of Present Illness 77-year-old man with left osteoarthritis present presents for elective left reverse total shoulder arthroplasty. He is doing well status post surgery today. Denies any chest pain, shortness of breath, nausea, postoperative pain. He does report some numbness in the thumb, first finger and middle finger on the left side. He is otherwise doing well. He has been on bridging therapy with Lovenox with paroxysmal A. fib and a history of PFO found on echo last fall. Past Medical/Surgical History Medical Problems: (1) BPH (benign prostatic hyperplasia) Status: Chronic (2) CAD (coronary artery disease) Status: Chronic (3) CKD (chronic kidney disease) stage 3, GFR 30-59 ml/min Status: Chronic (4) Dyslipidemia Status: Chronic (5) GERD (gastroesophageal reflux disease) Status: Chronic (6) Gout Status: Chronic (7) HTN (hypertension) Status: Chronic (8) senior living (current) use of anticoagulants Status: Chronic (9) Long-term current use of steroids Status: Chronic (10) ISRA on CPAP Status: Chronic (11) PAF (paroxysmal atrial fibrillation) Status: Chronic (12) Peripheral neuropathy Status: Chronic (13) PFO (patent foramen ovale) Status: Chronic (14) Post-laminectomy syndrome Status: Chronic (15) Pseudogout Status: Chronic (16) Spinal stenosis of lumbar region Status: Chronic (17) TIA (transient ischemic attack) Status: Chronic (18) Vitamin D deficiency Status: Chronic Surgical Problems: (1) H/O cataract removal with insertion of prosthetic lens Status: Resolved (2) H/O hemorrhoidectomy Status: Resolved (3) H/O umbilical hernia repair Status: Resolved (4) History of carpal tunnel surgery Permanent Comment: bilat Status: Resolved (5) History of cholecystectomy Status: Resolved (6) Hx of total knee arthroplasty Permanent Comment: R TKA 2013 Status: Resolved (7) S/P CABG x 2 Status: Resolved (8) S/P lumbar spinal fusion Status: Resolved (9) S/P rotator cuff repair Status: Resolved Family History Patient reports no known family medical history. Social History Smoking Status: Never Smoker Smokeless Tobacco Use: No Alcohol Use: none Drug Use: none Marital Status: Housing Status: lives with family Allergies Coded Allergies: Amiodarone (Verified Allergy, Unknown, unknown, 09/11/16) Heparin (Verified Allergy, Unknown, PATIENT HAD SYNCOPAL EVENT AFTER HEPARIN INJECTION, 09/11/16) Adhesives (Verified Adverse Reaction, Mild, RASH WITH SOME BANDAIDS, ) Nifedipine (Verified Adverse Reaction, Unknown, DIZZINESS, 10/01/17) Home Medications Active Reported Vitamin D 40132 Unit (Ergocalciferol) 50,000 Unit Cap 1 Tab PO WK Take one every Wednesday Urocit-K 10 (Potassium Citrate (Alkalinizer) 1,080 Mg Tab 1 Tab PO DAILY 30 Days Lovenox (Enoxaparin Sodium) 120 Mg/0.8 Ml Inj 100 Mg SQ Q12H Aspirin Ec (Aspirin) 81 Mg Tab 81 Mg PO QPM Xalatan 0.005% Oph Kimberly (Latanoprost) 0.005 % Kimberly 1 Drops OP HS 90 Days [place] 10MG/325MG (Acetaminophen/Hydrocodone Bitart) Tab 1 Tab PO Q6-8H PRN PAIN Flomax (Tamsulosin Hcl) 0.4 Mg Cap 0.4 Mg PO QAM Zyloprim (Allopurinol) 300 Mg Tab 300 Mg PO QPM Lasix (Furosemide) 20 Mg Tab 20 Mg PO QAM Crestor (Rosuvastatin Calcium) 10 Mg Tab 10 Mg PO QPM Coumadin (Warfarin Sod) 2.5 Mg Tab 2.5 Mg PO [id number] EVERY PM EXCEPT MONDAYS Zestril (Lisinopril) 10 Mg Tab 10 Mg PO BID Lyrica (Pregabalin) 150 Mg Cap 200 Mg PO DAILY@1500 Sotalol HCl 80 Mg Tab 80 Mg PO BID Coumadin (Warfarin Sod) 5 Mg Tab MONDAYS PM Nitrostat (Nitroglycerin) 0.4 Mg Tab 0.4 Mg UT PRN Prednisone 5 Mg Tab 5 Mg PO QAM Prilosec (Omeprazole) 20 Mg Capcr 20 Mg PO QAM Current Inpatient Medications Current Inpatient Medications Medications (Trade) Dose Ordered Sig/Fortino Route Start Time Stop Time Status Last Admin Dose Admin Ondansetron HCl (Zofran Inj) 4 mg ONE PRN IV 10/01/17 07:45 10/01/17 15:00 Atropine Sulfate (Atropine Sulfate 0.1mg/ml Inj) 0.5 mg Q1M PRN IV 4/13/18 07:45 10/01/17 15:00 Ketorolac Tromethamine (Toradol Inj) 15 mg ONE PRN IV. 10/01/17 07:45 10/01/17 15:00 Hydromorphone HCl (Dilaudid Inj) 0.25 mg Q5M PRN IV 10/01/17 07:45 10/01/17 15:00 Labetalol HCl (Normodyne IV) 5 mg Q5M PRN IV 10/01/17 07:45 10/01/17 15:00 Diphenhydramine HCl (Benadryl Cap) 25 mg Q8 PRN PO 10/01/17 09:45 10/31/17 09:44 Zolpidem Tartrate (Ambien Tab) 5 mg HSZ PRN PO 10/01/17 09:45 10/31/17 09:44 Ondansetron HCl (Zofran Inj) 4 mg Q6H PRN IV 10/01/17 09:45 10/31/17 09:44 Al Hydroxide/Mg Hydroxide (Maalox Susp) 30 ml Q4H PRN PO 10/01/17 09:45 10/31/17 09:44 Potassium Chloride 10 meq/ Sodium Chloride 1,005 ml @ 100 mls/hr Q10H3M IV 10/01/17 12:00 10/31/17 09:40 Celecoxib (CeleBREX CAP) 200 mg BID PO 10/01/17 21:00 10/31/17 20:59 Oxycodone HCl (Roxicodone Immediate Rel Tab) `1-2 TABS FOR PAIN `1 TAB... Q4H PRN PO 10/01/17 09:45 10/15/17 09:44 Acetaminophen (Tylenol Tab) 1,000 mg Q8 PO 10/01/17 14:00 10/31/17 13:59 Morphine Sulfate (MoRPHine SULFATE INJ) 2 mg Q4H PRN IV 10/01/17 09:45 10/15/17 09:44 Magnesium Hydroxide (Milk Of Magnesia Susp) 30 ml Q6H PRN PO 10/01/17 09:45 10/31/17 09:44 Bisacodyl (Dulcolax Supp) 10 mg DAILY PRN AL 4/13/18 09:45 10/31/17 09:44 Sodium Biphosphate/ Sodium Phosphate (Fleet Enema) 132 ml DAILY PRN AL 10/01/17 09:45 10/31/17 09:44 Senna (Senokot Tab) 17.2 mg HS PO 10/01/17 21:00 10/31/17 20:59 Docusate Sodium (coLACE CAP) 100 mg BID PO 10/01/17 21:00 10/31/17 20:59 Multivitamins (Multivitamin Tab) 1 tab DAILY PO 10/02/17 09:00 11/01/17 08:59 Ferrous Gluconate (Ferrous Gluconate Tab) 324 mg TIDM PO 10/01/17 12:30 10/31/17 12:29 Cefazolin Sodium 2000 mg/Syringe 15 ml @ 3.75 mls/ min Q8H IV 10/01/17 15:00 10/01/17 23:03 Allopurinol (Zyloprim Tab) 300 mg QPM PO 10/01/17 21:00 10/31/17 20:59 Aspirin (Ecotrin Tab) 81 mg QPM PO 10/01/17 21:00 10/31/17 20:59 Furosemide (Lasix Tab) 20 mg QAM PO 10/02/17 09:00 11/01/17 08:59 Latanoprost (Xalatan Oph Soln) 1 drops HS OP 10/01/17 21:00 10/31/17 20:59 Lisinopril (Zestril Tab) 10 mg BID PO 10/01/17 21:00 10/31/17 20:59 Nitroglycerin (Nitrostat Tab) 0.4 mg UD PRN UT 10/01/17 09:45 10/31/17 09:44 Prednisone (PredniSONE TAB) 5 mg QAM PO 10/02/17 09:00 11/01/17 08:59 Rosuvastatin Calcium (Crestor Tab) 10 mg QPM PO 10/01/17 21:00 10/31/17 20:59 Sotalol HCl (Betapace Tab) 80 mg BID PO 10/01/17 21:00 10/31/17 20:59 Tamsulosin HCl (Flomax Cap) 0.4 mg QAM PO 10/02/17 09:00 11/01/17 08:59 Warfarin Sodium (Coumadin Tab) 2.5 mg SuTuWeThFrSa@1600 PO 10/01/17 16:00 10/31/17 15:59 Pantoprazole Sodium (Protonix Tab) 40 mg QAM PO 10/02/17 09:00 11/01/17 08:59 Potassium Citrate (Urocit-K Tab) 10 meq QPM PO 10/01/17 21:00 10/31/17 20:59 Warfarin Sodium (Coumadin Tab) 5 mg Mo@1600 PO 10/04/17 16:00 11/03/17 15:59 Review of Systems At least 10 systems were reviewed and negative except as indicated in HPI. Physical Exam Date Time Temp Pulse Resp B/P (MAP) Pulse Ox O2 Delivery O2 Flow Rate FiO2 10/01/17 11:22 97 Nasal Cannula 2.0 10/01/17 10:55 36.6 67 18 110/69 (83) 97 Nasal Cannula 2.0 10/01/17 10:55 97 Nasal Cannula 2.0 10/01/17 10:30 36.1 65 16 113/78 97 Nasal Cannula 4 10/01/17 10:20 77 16 120/78 97 Nasal Cannula 4 10/01/17 10:10 64 15 117/88 95 Nasal Cannula 4 102/52 10/01/17 10:00 68 14 120/78 97 Oxymask 10 10/01/17 09:50 69 14 117/83 97 Oxymask 10 10/01/17 09:41 36.0 76 14 119/72 99 Oxymask 10 10/01/17 05:36 36.7 67 20 147/80 93 Room Air General Appearance: WD/WN, no apparent distress Head: normocephalic, atraumatic Eyes: normal inspection, sclerae normal ENT: hearing grossly normal Neck: no JVD, trachea midline Respiratory/Chest: lungs clear, normal breath sounds, no respiratory distress, no accessory muscle use Cardiovascular: no edema, no murmur, normal peripheral pulses, + irregularly irregular Abdomen/GI: normal bowel sounds, non tender, soft Extremities/Musculoskelatal: + pertinent finding (No lower extremity edema or swelling, left arm is in sling stopped a dressing that is clean dry and intact. Sensation decrease in thumb first and middle finger on the left hand. Moving all fingers equally, warm and well-perfused.) Neurologic/Psych: pharmacometrician II-XII nml as tested, no motor/sensory deficits, alert, normal mood/affect, oriented x 3 Skin: normal color, warm/dry Laboratory Results 08/31/17 14:56 Red Blood Count 4.08, Mean Corpuscular Volume 98.3, Mean Corpuscular Hemoglobin 31.6, Mean Corpuscular Hemoglobin Concent 32.2, Mean Platelet Volume 8.4, Neutrophils (%) (Auto) 68.2, Lymphocytes (%) (Auto) 23.4, Monocytes (%) (Auto) 6.9, Eosinophils (%) (Auto) 0.7, Basophils (%) (Auto) 0.4, Neutrophils # (Auto) 7.06, Lymphocytes # (Auto) 2.42, Monocytes # (Auto) 0.71, Eosinophils # (Auto) 0.07, Basophils # (Auto) 0.04 08/31/17 14:56 Test 08/31/17 14:56 10/01/17 05:53 White Blood Count 10.34 K/uL (4.8-10.8) Red Blood Count 4.08 M/uL (4.7-6.1) Hemoglobin 12.9 g/dL (14.0-18.0) Hematocrit 40.1 % (42-52) Mean Corpuscular Volume 98.3 fL (80-100) Mean Corpuscular Hemoglobin 31.6 pg (25-34) Mean Corpuscular Hemoglobin Concent 32.2 g/dl (32-36) Platelet Count 213 K/uL (130-400) Mean Platelet Volume 8.4 fL (7.4-10.4) Neutrophils (%) (Auto) 68.2 % Lymphocytes (%) (Auto) 23.4 % Monocytes (%) (Auto) 6.9 % Eosinophils (%) (Auto) 0.7 % Basophils (%) (Auto) 0.4 % Neutrophils # (Auto) 7.06 K/uL (1.4-6.5) Lymphocytes # (Auto) 2.42 K/uL (1.2-3.4) Monocytes # (Auto) 0.71 K/uL (0.11-0.59) Eosinophils # (Auto) 0.07 K/uL (0-0.5) Basophils # (Auto) 0.04 K/uL (0-0.2) RDW Standard Deviation 60.3 fL (36.4-46.3) RDW Coefficient of Variation 16.9 % (11.5-14.5) Immature Granulocyte % (Auto) 0.4 % Immature Granulocyte # (Auto) 0.04 K/uL (0.00-0.02) Anion Gap 8.0 mmol/L (3-11) Est Creatinine Clear Calc Drug Dose 59.1 ml/min Estimated GFR () 61.0 Estimated GFR (Non- 52.6 BUN/Creatinine Ratio 17.5 (10-20) Estimated Average Glucose 117 mg/dl Hemoglobin A1c 5.7 % (4.5-5.6) Calcium Level 9.4 mg/dl (8.5-10.1) Albumin 3.9 gm/dl (3.4-5.0) Prothrombin Time 13.1 SECONDS (9.0-12.0) Prothromb Time International Ratio 1.3 (0.9-1.1) Activated Partial Thromboplast Time 29.3 SECONDS (21.0-31.0) Partial Thromboplastin Ratio 1.1 Last 24 Hours Test 10/01/17 05:53 Prothrombin Time 13.1 SECONDS Prothromb Time International Ratio 1.3 Activated Partial Thromboplast Time 29.3 SECONDS Partial Thromboplastin Ratio 1.1 Assessment & Plan 77-year-old man presents with for elective left reverse total shoulder arthroplasty. 1. s/p left reverse total shoulder arthroplasty -POD 0; surgery performed by since about -post-operative pain well managed -monitor for acute blood loss with daily H&H -pt encouraged to utilize spirometry to prevent post-op infection -PT/OT -activity and wound care orders per ortho protocol -will continue to follow 2. Atrial fibrillation in setting of known PFO-warfarin currently on hold. Patient will need bridging therapy with Lovenox when cleared postoperatively by surgeon to have anticoagulation. Continue rhythm control with sotalol. 3. CAD status post CABG-stable, no chest pain or shortness of breath at this time. Continue medical management with aspirin 81 daily, lisinopril 10 mg twice daily, rosuvastatin 40 mg daily. 4. Polyarthritis-continue chronic steroids 5. Peripheral neuropathy-Lyrica per home regimen DVT Prophylaxis-Lovenox/Coumadin Full code Disposition-per orthopedics Thank you for this consultation. We will follow the patient with you during their hospital stay. You can reach a member of the [facility] Hospitalist Team 11/01 via pager @ . [facility] DO [facility]
[2017-10-01] MEDS: ENOXAPARIN 120 MG/0.8 ML SYR SQ SCH (19:23)
[2017-10-01] MEDS: LATANOPROST 0.005% OP SOLN 2.5 ML BTL OP SCH (21:59)
[2017-10-01] MEDS: ASPIRIN 81 MG ECTAB PO SCH (22:00)
[2017-10-01] MEDS: SENNA 8.6 MG TAB PO SCH (22:00)
[2017-10-01] MEDS: SOTALOL HCL 80 MG TAB PO SCH (22:01)
[2017-10-01] MEDS: ROSUVASTATIN CALCIUM 10 MG TAB PO SCH (22:01)
[2017-10-01] MEDS: CeleBREX 200 MG CAP PO SCH (22:01)
[2017-10-01] MEDS: LISINOPRIL 10 MG TAB PO SCH (22:02)
[2017-10-01] MEDS: POTASSIUM CITRATE 10 MEQ TAB PO SCH (22:02)
[2017-10-01] MEDS: DOCUSATE SODIUM 100 MG CAP PO SCH (22:02)
[2017-10-01] MEDS: ALLOPURINOL 300 MG TAB PO SCH (22:02)
[2017-10-02] VITALS (8 sets, daily range): BP systolic 85–107; BP diastolic 50–69; PULSE 67–80; TEMP 36.4–36.9; O2SAT 84–95
[2017-10-02] MEDS: POTASSIUM CHLORIDE INJ 10 MEQ in SODIUM CHLORIDE 0.9% 1000ML 1,000 ML IV SCH ×2 (03:56→10:46)
[2017-10-02] MEDS: OXYCODONE HCL IR 5 MG TAB (IMMEDIATE RELEASE) PO PRN ×4 (05:34→20:56)
[2017-10-02] MEDS: ACETAMINOPHEN 500 MG TAB PO SCH ×3 (05:35→22:10)
[2017-10-02] MEDS: ENOXAPARIN 120 MG/0.8 ML SYR SQ SCH (05:37)
[2017-10-02 06:25] LABS: HEMATOCRIT 28.4 % (42-52); MEAN CELL VOLUME 98.3 fL (80-100); MEAN CORPUSCULAR HEMOGLOBIN 31.1 pg (25-34); MEAN CORPUSCULAR HGB CONC 31.7 g/dl (32-36); MEAN PLATELET VOLUME 8.6 fL (7.4-10.4); NUCLEATED RED BLOOD CELL ABS 0.04 K/uL (0-0); PLATELET COUNT 224 K/uL (130-400); RED CELL DISTRIBUTION WIDTH CV 17.2 % (11.5-14.5); RED CELL DISTRIBUTION WIDTH SD 61.5 fL (36.4-46.3); WHITE BLOOD COUNT 17.92 K/uL (4.8-10.8)
[2017-10-02 06:44] LABS: INR 1.3 (0.9-1.1)
[2017-10-02 06:55] LABS: CALCIUM 8.1 mg/dl (8.5-10.1); CREATININE 1.79 mg/dl (0.60-1.40); POTASSIUM 4.6 mmol/L (3.5-5.1)
[2017-10-02] MEDS: MULTIVITAMIN TAB PO SCH (09:22)
[2017-10-02] MEDS: FERROUS GLUCONATE 324 MG TAB PO SCH ×3 (09:22→17:29)
[2017-10-02] MEDS: DOCUSATE SODIUM 100 MG CAP PO SCH ×2 (09:22→20:52)
[2017-10-02] MEDS: TAMSULOSIN HCL 0.4 MG CAP PO SCH (09:22)
[2017-10-02] MEDS: CeleBREX 200 MG CAP PO SCH ×2 (09:22→20:51)
[2017-10-02] MEDS: POTASSIUM CITRATE 10 MEQ TAB PO SCH ×2 (09:22→20:51)
[2017-10-02] MEDS: LISINOPRIL 10 MG TAB PO SCH ×2 (09:22→20:51)
[2017-10-02] MEDS: PANTOprazole SOD 40 MG TAB PO SCH (09:23)
[2017-10-02] MEDS: FUROSEMIDE 20 MG TAB PO SCH (09:23)
[2017-10-02] MEDS: SOTALOL HCL 80 MG TAB PO SCH ×2 (09:23→20:50)
--- NOTE | 2017-10-02 11:14 | Orthopedic Progress Note ---
Orthopedic Progress Note Date of Service Oct 02, 2017. Subjective Post OP Day: 1 Denies: chest pain Objective Left shoulder: Dressings clean dry and intact. Light touch sensation and motor function of the hand is normal Date Time Temp Pulse Resp B/P (MAP) Pulse Ox O2 Delivery O2 Flow Rate FiO2 10/02/17 07:23 95 Nasal Cannula 2.0 10/02/17 07:23 36.4 68 18 99/64 (76) 84 Room Air 10/02/17 03:48 36.4 67 17 107/69 (82) 92 Room Air 10/02/17 00:30 Nasal Cannula 2.0 10/01/17 23:12 36.4 76 15 95/61 (72) 91 Nasal Cannula 2.0 10/01/17 23:10 83 Room Air 10/01/17 22:06 83 115/71 (86) 10/01/17 15:30 Room Air 10/01/17 15:09 36.5 72 20 100/66 (77) 91 Room Air 10/01/17 13:57 36.4 71 17 147/97 (114) 92 Room Air 10/01/17 12:49 68 20 119/71 (87) 100 Nasal Cannula 4.0 10/01/17 12:08 65 16 123/79 (94) 98 2.0 10/01/17 11:25 62 16 100/68 (79) 100 Nasal Cannula 4.0 10/01/17 11:22 97 Nasal Cannula 2.0 Laboratory Results 24 Hours: Test 10/02/17 06:05 Hematocrit 28.4 % Hemoglobin 9.0 g/dL Prothromb Time International Ratio 1.3 Prothrombin Time 14.0 SECONDS Assessment & Plan Assessment: Postop day 1 status post left reverse total shoulder arthroplasty Plan: His hemoglobin is little low at 9. We will check this again tomorrow. Therapy is recommending evaluation for [facility] I think this is reasonable. Patient is amenable to this. Warfarin for DVT prophylaxis
--- NOTE | 2017-10-02 12:38 | Progress Note ---
Subjective Date of Service: Oct 02, 2017. Subjective Pt evaluation today including: conversation w/ patient, physical exam, lab review, review of studies, review of inpatient medication list Saw/examined the patient in room 320 He's doing well with his shoulder; denies any chest pain/palpitations Review of Systems Respiratory: No cough, No sputum, No shortness of breath Cardiac: No chest pain, No palpitations Abdomen: No pain, No nausea, No vomiting, No diarrhea Musculoskeletal: No joint pain Medications Current Inpatient Medications Medications (Trade) Dose Ordered Sig/Fortino Route Start Time Stop Time Status Last Admin Dose Admin Diphenhydramine HCl (Benadryl Cap) 25 mg Q8 PRN PO 10/01/17 09:45 10/31/17 09:44 Zolpidem Tartrate (Ambien Tab) 5 mg HSZ PRN PO 10/01/17 09:45 10/31/17 09:44 Ondansetron HCl (Zofran Inj) 4 mg Q6H PRN IV 10/01/17 09:45 10/31/17 09:44 Al Hydroxide/Mg Hydroxide (Maalox Susp) 30 ml Q4H PRN PO 10/01/17 09:45 10/31/17 09:44 Potassium Chloride 10 meq/ Sodium Chloride 1,005 ml @ 150 mls/hr Q6H42M IV 10/01/17 12:00 10/31/17 09:40 10/02/17 03:56 150 MLS/HR Celecoxib (CeleBREX CAP) 200 mg BID PO 10/01/17 21:00 10/31/17 20:59 10/02/17 09:22 200 MG Oxycodone HCl (Roxicodone Immediate Rel Tab) `1-2 TABS FOR PAIN `1 TAB... Q4H PRN PO 10/01/17 09:45 10/15/17 09:44 10/02/17 05:34 10 MG Acetaminophen (Tylenol Tab) 1,000 mg Q8 PO 10/01/17 14:00 10/31/17 13:59 10/02/17 05:35 1,000 MG Morphine Sulfate (MoRPHine SULFATE INJ) 2 mg Q4H PRN IV 10/01/17 09:45 10/15/17 09:44 Magnesium Hydroxide (Milk Of Magnesia Susp) 30 ml Q6H PRN PO 10/01/17 09:45 10/31/17 09:44 Bisacodyl (Dulcolax Supp) 10 mg DAILY PRN [place] 10/01/17 09:45 10/31/17 09:44 Sodium Biphosphate/ Sodium Phosphate (Fleet Enema) 132 ml DAILY PRN [place] 10/01/17 09:45 10/31/17 09:44 Senna (Senokot Tab) 17.2 mg HS PO 10/01/17 21:00 10/31/17 20:59 10/01/17 22:00 17.2 MG Docusate Sodium (coLACE CAP) 100 mg BID PO 10/01/17 21:00 10/31/17 20:59 10/02/17 09:22 100 MG Multivitamins (Multivitamin Tab) 1 tab DAILY PO 10/02/17 09:00 11/01/17 08:59 10/02/17 09:22 1 TAB Ferrous Gluconate (Ferrous Gluconate Tab) 324 mg TIDM PO 10/01/17 12:30 10/31/17 12:29 10/02/17 09:22 324 MG Allopurinol (Zyloprim Tab) 300 mg QPM PO 10/01/17 21:00 10/31/17 20:59 10/01/17 22:02 300 MG Aspirin (Ecotrin Tab) 81 mg QPM PO 10/01/17 21:00 10/31/17 20:59 10/01/17 22:00 81 MG Furosemide (Lasix Tab) 20 mg QAM PO 10/02/17 09:00 11/01/17 08:59 10/02/17 09:23 20 MG Latanoprost (Xalatan Oph Soln) 1 drops HS OP 10/01/17 21:00 10/31/17 20:59 10/01/17 21:59 1 DROPS Lisinopril (Zestril Tab) 10 mg BID PO 10/01/17 21:00 10/31/17 20:59 10/02/17 09:22 10 MG Nitroglycerin (Nitrostat Tab) 0.4 mg UD PRN UT 10/01/17 09:45 10/31/17 09:44 Prednisone (PredniSONE TAB) 5 mg QAM PO 10/02/17 09:00 11/01/17 08:59 10/02/17 09:22 5 MG Rosuvastatin Calcium (Crestor Tab) 10 mg QPM PO 10/01/17 21:00 10/31/17 20:59 10/01/17 22:01 10 MG Sotalol HCl (Betapace Tab) 80 mg BID PO 10/01/17 21:00 10/31/17 20:59 10/02/17 09:23 80 MG Tamsulosin HCl (Flomax Cap) 0.4 mg QAM PO 10/02/17 09:00 11/01/17 08:59 10/02/17 09:22 0.4 MG Warfarin Sodium (Coumadin Tab) 2.5 mg SuTuWeThFrSa@1600 PO 10/01/17 16:00 10/31/17 15:59 10/01/17 15:32 2.5 MG Pantoprazole Sodium (Protonix Tab) 40 mg QAM PO 10/02/17 09:00 11/01/17 08:59 10/02/17 09:23 40 MG Potassium Citrate (Urocit-K Tab) 10 meq QPM PO 10/01/17 21:00 10/31/17 20:59 10/01/17 22:02 10 MEQ Warfarin Sodium (Coumadin Tab) 5 mg Mo@1600 PO 10/04/17 16:00 11/03/17 15:59 Potassium Citrate (Urocit-K Tab) 10 meq DAILY PO 10/02/17 09:00 11/01/17 08:59 10/02/17 09:22 10 MEQ Pregabalin (Lyrica Cap) 200 mg DAILY@1500 PO 10/01/17 15:00 10/31/17 14:59 10/01/17 15:32 200 MG Enoxaparin Sodium (Lovenox Inj) 111 mg Q12@0600,1800 SQ 10/01/17 17:15 10/31/17 17:14 10/02/17 05:37 111 MG Objective Vital Signs Date Time Temp Pulse Resp B/P (MAP) Pulse Ox O2 Delivery O2 Flow Rate FiO2 10/02/17 10:48 87 10/02/17 07:23 95 Nasal Cannula 2.0 10/02/17 07:23 36.4 68 18 99/64 (76) 84 Room Air 10/02/17 03:48 36.4 67 17 107/69 (82) 92 Room Air 10/02/17 00:30 Nasal Cannula 2.0 10/01/17 23:12 36.4 76 15 95/61 (72) 91 Nasal Cannula 2.0 10/01/17 23:10 83 Room Air 10/01/17 22:06 83 115/71 (86) 10/01/17 15:30 Room Air 10/01/17 15:09 36.5 72 20 100/66 (77) 91 Room Air 10/01/17 13:57 36.4 71 17 147/97 (114) 92 Room Air 10/01/17 12:49 68 20 119/71 (87) 100 Nasal Cannula 4.0 Physical Exam General Appearance: no apparent distress Respiratory/Chest: no respiratory distress, no accessory muscle use Cardiovascular: + irregularly irregular Extremities: + pertinent finding (L shoulder in a sling) Laboratory Results Last 24 Hours Test 10/02/17 06:05 White Blood Count 17.92 K/uL Red Blood Count 2.89 M/uL Hemoglobin 9.0 g/dL Hematocrit 28.4 % Mean Corpuscular Volume 98.3 fL Mean Corpuscular Hemoglobin 31.1 pg Mean Corpuscular Hemoglobin Concent 31.7 g/dl RDW Standard Deviation 61.5 fL RDW Coefficient of Variation 17.2 % Platelet Count 224 K/uL Mean Platelet Volume 8.6 fL Nucleated RBC Absolute Count (auto) 0.04 K/uL Nucleated Red Blood Cells % 0.2 % Prothrombin Time 14.0 SECONDS Prothromb Time International Ratio 1.3 Sodium Level 137 mmol/L Potassium Level 4.6 mmol/L Chloride Level 108 mmol/L Carbon Dioxide Level 22 mmol/L Anion Gap 7.0 mmol/L Blood Urea Nitrogen 33 mg/dl Creatinine 1.79 mg/dl Est Creatinine Clear Calc Drug Dose 42.9 ml/min Estimated GFR () 41.4 Estimated GFR (Non- 35.8 BUN/Creatinine Ratio 18.6 Random Glucose 124 mg/dl Calcium Level 8.1 mg/dl Assessment and Plan This is a 77 year old male with a past medical history of paroxysmal atrial fibrillation on long-term anticoagulation, gouty arthropathy on long-term steroid use, Hx. of CAD s/p CABG, prediabetes, chronic pain syndrome - follows with the pain management clinic - here for a L shoulder surgery s/p L shoulder arthroplasty - POD #1 - doing well, feels fine in terms of pain - Lovenox for DVT ppx - PT/OT - may need rehab on discharge Paroxysmal A. Fib hx. of PFO - Lovenox to Coumadin bridge - as per Coumadin clinic, will do 100mg of Lovenox q12 from 10/02 to 10/04; will take 5mg of Coumadin on 10/02, 10/03, then regular doses of 5mg on Wednesday and 2.5mg on all other days - Repeat pt/inr on 10/15 at 9am - Lovenox started and teaching already performed Hx. of CAD - s/p CABG - continue aspirin, statin, b-ketan Gouty Arthropathy - continue Prednisone 5mg daily DVT ppx - Lovenox to Coumadin FULL CODE
[2017-10-02] MEDS ORDERED: NURSING VERBAL MED ORDER ONE (15:00)
[2017-10-02] MEDS: PREGABALIN 100 MG CAP PO SCH (15:00)
[2017-10-02] MEDS: WARFARIN SOD 2.5 MG TAB PO SCH (15:40)
[2017-10-02] MEDS: ENOXAPARIN 100 MG/1ML SYR SQ SCH (17:30)
[2017-10-02] MEDS: MoRPHine SULFATE 2 MG/ML CARP IV PRN ×2 (18:06→22:16)
[2017-10-02] MEDS: ROSUVASTATIN CALCIUM 10 MG TAB PO SCH (20:48)
[2017-10-02] MEDS: SENNA 8.6 MG TAB PO SCH (20:49)
[2017-10-02] MEDS: LATANOPROST 0.005% OP SOLN 2.5 ML BTL OP SCH (20:52)
[2017-10-02] MEDS: ALLOPURINOL 300 MG TAB PO SCH (20:52)
[2017-10-02] MEDS: ASPIRIN 81 MG ECTAB PO SCH (20:57)
[2017-10-03] VITALS (22 sets, daily range): BP systolic 72–131; BP diastolic 39–77; PULSE 62–82; TEMP 36–36.6; O2SAT 92–99
[2017-10-03] MEDS: OXYCODONE HCL IR 5 MG TAB (IMMEDIATE RELEASE) PO PRN (01:05)
[2017-10-03] MEDS: MoRPHine SULFATE 2 MG/ML CARP IV PRN (03:38)
[2017-10-03] MEDS: ACETAMINOPHEN 500 MG TAB PO SCH ×3 (05:25→22:16)
[2017-10-03] MEDS: ENOXAPARIN 100 MG/1ML SYR SQ SCH ×2 (05:26→17:19)
[2017-10-03 06:00] LABS: HEMATOCRIT 21.8 % (42-52); MEAN CELL VOLUME 97.8 fL (80-100); MEAN CORPUSCULAR HEMOGLOBIN 31.4 pg (25-34); MEAN CORPUSCULAR HGB CONC 32.1 g/dl (32-36); MEAN PLATELET VOLUME 8.4 fL (7.4-10.4); NUCLEATED RED BLOOD CELL ABS 0.06 K/uL (0-0); PLATELET COUNT 187 K/uL (130-400); RED CELL DISTRIBUTION WIDTH SD 63.4 fL (36.4-46.3); WHITE BLOOD COUNT 17.06 K/uL (4.8-10.8)
[2017-10-03 06:10] LABS: INR 1.5 (0.9-1.1)
[2017-10-03 06:26] LABS: CALCIUM 8.1 mg/dl (8.5-10.1); CREATININE 1.93 mg/dl (0.60-1.40); POTASSIUM 4.2 mmol/L (3.5-5.1)
[2017-10-03] MEDS ORDERED: SODIUM CHLORIDE 0.9% 1000ML 1,000 ML IV ONE (07:00)
[2017-10-03] MEDS ORDERED: DiphenhydrAMINE HCL 50 MG/ML VIAL IV ONE (07:15)
--- NOTE | 2017-10-03 07:17 | Orthopedic Progress Note ---
Orthopedic Progress Note Date of Service Oct 03, 2017. Subjective Post OP Day: 2 Reports: pain controlled w PO medications, Denies: complaints, chest pain, nausea / vomiting, light headedness, calf pain Objective N/V intact, capillary refill less than 2 sec., dressing C/D/I, incision C/D/I, A &O x3 Date Time Temp Pulse Resp B/P (MAP) Pulse Ox O2 Delivery O2 Flow Rate FiO2 10/03/17 01:03 62 131/77 (95) 99 Nasal Cannula 2.0 10/02/17 23:10 Nasal Cannula 2.0 10/02/17 22:59 94/58 (70) 10/02/17 22:55 36.6 75 18 85/50 (62) 94 Nasal Cannula 2.0 10/02/17 19:27 94 Nasal Cannula 2.0 10/02/17 19:24 86 Room Air 10/02/17 15:30 Room Air 10/02/17 15:05 36.9 80 18 107/61 (76) 92 Room Air 10/02/17 10:48 87 10/02/17 08:00 Nasal Cannula 2.0 10/02/17 07:23 95 Nasal Cannula 2.0 10/02/17 07:23 36.4 68 18 99/64 (76) 84 Room Air Laboratory Results 24 Hours: Test 10/03/17 05:30 Hematocrit 21.8 % Hemoglobin 7.0 g/dL Prothromb Time International Ratio 1.5 Prothrombin Time 15.6 SECONDS Assessment & Plan Assessment: Postop day 2 status post left reverse total shoulder arthroplasty post-op anemia H/H 7/21.8- will transfuse 1 unit this am will look into possible HSNVR Plan: Therapy is recommending evaluation for [facility] I think this is reasonable. Patient is amenable to this. Warfarin for DVT prophylaxis Discharge Planning Discharge Planning: uncertain
[2017-10-03] MEDS: ACETAMINOPHEN 325 MG TAB PO ONE ×2 (07:40→07:45)
[2017-10-03] MEDS: FERROUS GLUCONATE 324 MG TAB PO SCH ×3 (07:54→17:19)
[2017-10-03] MEDS: SOTALOL HCL 80 MG TAB PO SCH ×2 (09:00→21:00)
[2017-10-03] MEDS: LISINOPRIL 10 MG TAB PO SCH (09:00)
[2017-10-03] MEDS: MULTIVITAMIN TAB PO SCH (09:07)
[2017-10-03] MEDS: DOCUSATE SODIUM 100 MG CAP PO SCH ×2 (09:08→21:09)
[2017-10-03] MEDS: CeleBREX 200 MG CAP PO SCH ×2 (09:08→21:10)
[2017-10-03] MEDS: FUROSEMIDE 20 MG TAB PO SCH (09:08)
[2017-10-03] MEDS: TAMSULOSIN HCL 0.4 MG CAP PO SCH (09:08)
[2017-10-03] MEDS: POTASSIUM CITRATE 10 MEQ TAB PO SCH ×2 (09:12→21:09)
[2017-10-03] MEDS: PANTOprazole SOD 40 MG TAB PO SCH (09:12)
[2017-10-03] MEDS ORDERED: SODIUM CHLORIDE 0.9% 500ML 500 ML IV SCH (10:30)
--- NOTE | 2017-10-03 10:36 | Progress Note ---
Subjective Date of Service: Oct 03, 2017. Subjective Pt evaluation today including: conversation w/ patient, physical exam, lab review, review of studies, review of inpatient medication list Saw/examined the patient in room 320 He is weak and tired today blood pressure was low last evening and this morning found to have worsening kidney function and low hemoglobin transfusion of packed red blood cells was started and about 2 hours afterwards, he developed hypotension; transfusion stopped and blood pressure improved he has no symptoms, denies SOB/CP Review of Systems Constitutional: + weakness, + fatigue, No fever, No chills Respiratory: No cough, No sputum, No shortness of breath Cardiac: No chest pain Abdomen: No pain, No nausea, No vomiting, No diarrhea Medications Current Inpatient Medications Medications (Trade) Dose Ordered Sig/Fortino Route Start Time Stop Time Status Last Admin Dose Admin Diphenhydramine HCl (Benadryl Cap) 25 mg Q8 PRN PO 10/01/17 09:45 10/31/17 09:44 Zolpidem Tartrate (Ambien Tab) 5 mg HSZ PRN PO 10/01/17 09:45 10/31/17 09:44 Ondansetron HCl (Zofran Inj) 4 mg Q6H PRN IV 10/01/17 09:45 10/31/17 09:44 Al Hydroxide/Mg Hydroxide (Maalox Susp) 30 ml Q4H PRN PO 10/01/17 09:45 10/31/17 09:44 Celecoxib (CeleBREX CAP) 200 mg BID PO 10/01/17 21:00 10/31/17 20:59 10/03/17 09:08 200 MG Oxycodone HCl (Roxicodone Immediate Rel Tab) `1-2 TABS FOR PAIN `1 TAB... Q4H PRN PO 10/01/17 09:45 10/15/17 09:44 10/03/17 01:05 10 MG Acetaminophen (Tylenol Tab) 1,000 mg Q8 PO 10/01/17 14:00 10/31/17 13:59 10/03/17 05:25 1,000 MG Morphine Sulfate (MoRPHine SULFATE INJ) 2 mg Q4H PRN IV 10/01/17 09:45 10/15/17 09:44 10/03/17 03:38 2 MG Magnesium Hydroxide (Milk Of Magnesia Susp) 30 ml Q6H PRN PO 10/01/17 09:45 10/31/17 09:44 Bisacodyl (Dulcolax Supp) 10 mg DAILY PRN OK 10/01/17 09:45 10/31/17 09:44 Sodium Biphosphate/ Sodium Phosphate (Fleet Enema) 132 ml DAILY PRN OK 10/01/17 09:45 10/31/17 09:44 Senna (Senokot Tab) 17.2 mg HS PO 10/01/17 21:00 10/31/17 20:59 10/02/17 20:49 17.2 MG Docusate Sodium (coLACE CAP) 100 mg BID PO 10/01/17 21:00 10/31/17 20:59 10/03/17 09:08 100 MG Multivitamins (Multivitamin Tab) 1 tab DAILY PO 10/02/17 09:00 11/01/17 08:59 10/03/17 09:07 1 TAB Ferrous Gluconate (Ferrous Gluconate Tab) 324 mg TIDM PO 10/01/17 12:30 10/31/17 12:29 10/03/17 07:54 324 MG Allopurinol (Zyloprim Tab) 300 mg QPM PO 10/01/17 21:00 10/31/17 20:59 10/02/17 20:52 300 MG Aspirin (Ecotrin Tab) 81 mg QPM PO 10/01/17 21:00 10/31/17 20:59 10/02/17 20:57 81 MG Furosemide (Lasix Tab) 20 mg QAM PO 10/02/17 09:00 11/01/17 08:59 10/03/17 09:08 20 MG Latanoprost (Xalatan Oph Soln) 1 drops HS OP 10/01/17 21:00 10/31/17 20:59 10/02/17 20:52 1 DROPS Nitroglycerin (Nitrostat Tab) 0.4 mg UD PRN UT 10/01/17 09:45 10/31/17 09:44 Prednisone (PredniSONE TAB) 5 mg QAM PO 10/02/17 09:00 11/01/17 08:59 10/03/17 09:07 5 MG Rosuvastatin Calcium (Crestor Tab) 10 mg QPM PO 10/01/17 21:00 10/31/17 20:59 4/14/18 20:48 10 MG Sotalol HCl (Betapace Tab) 80 mg BID PO 10/01/17 21:00 10/31/17 20:59 10/02/17 09:23 80 MG Tamsulosin HCl (Flomax Cap) 0.4 mg QAM PO 10/02/17 09:00 11/01/17 08:59 10/03/17 09:08 0.4 MG Warfarin Sodium (Coumadin Tab) 2.5 mg SuTuWeThFrSa@1600 PO 10/01/17 16:00 10/31/17 15:59 10/02/17 15:40 2.5 MG Pantoprazole Sodium (Protonix Tab) 40 mg QAM PO 10/02/17 09:00 11/01/17 08:59 10/03/17 09:12 40 MG Potassium Citrate (Urocit-K Tab) 10 meq QPM PO 10/01/17 21:00 10/31/17 20:59 10/02/17 20:51 10 MEQ Warfarin Sodium (Coumadin Tab) 5 mg Mo@1600 PO 10/04/17 16:00 11/03/17 15:59 Potassium Citrate (Urocit-K Tab) 10 meq DAILY PO 10/02/17 09:00 11/01/17 08:59 10/03/17 09:12 10 MEQ Pregabalin (Lyrica Cap) 200 mg DAILY@1500 PO 10/01/17 15:00 10/31/17 14:59 10/02/17 15:00 200 MG Enoxaparin Sodium (Lovenox Inj) 100 mg Q12@0600,1800 SQ 10/02/17 18:00 10/31/17 17:14 10/03/17 05:26 100 MG Sodium Chloride 1,000 ml @ 75 mls/hr [id number] ONCE IV 10/03/17 07:00 10/03/17 20:19 10/03/17 07:17 75 MLS/HR Sodium Chloride 500 ml @ 999 mls/hr Q31M IV 10/03/17 10:30 11/02/17 10:29 UNV Objective Vital Signs Date Time Temp Pulse Resp B/P (MAP) Pulse Ox O2 Delivery O2 Flow Rate FiO2 10/03/17 10:21 68 103/64 (77) 97 Oxymask 6.0 10/03/17 10:15 73 103/65 (78) 99 Oxymask 6.0 10/03/17 10:06 96/63 (74) 10/03/17 10:01 86/55 (65) 10/03/17 09:45 36.4 73 72/39 95 10/03/17 09:15 36.5 76 18 89/50 95 3.0 10/03/17 09:00 36.3 78 18 99/62 92 3.0 10/03/17 08:35 36.5 71 18 104/53 97 3.0 10/03/17 08:15 36.4 66 16 102/70 10/03/17 07:50 Nasal Cannula 3.0 10/03/17 07:45 36.4 70 16 93/60 (71) 98 Nasal Cannula 2.0 10/03/17 01:03 62 131/77 (95) 99 Nasal Cannula 2.0 10/02/17 23:10 Nasal Cannula 2.0 10/02/17 22:59 94/58 (70) 10/02/17 22:55 36.6 75 18 85/50 (62) 94 Nasal Cannula 2.0 10/02/17 19:27 94 Nasal Cannula 2.0 10/02/17 19:24 86 Room Air 10/02/17 15:30 Room Air 10/02/17 15:05 36.9 80 18 107/61 (76) 92 Room Air 10/02/17 10:48 87 Physical Exam General Appearance: + pertinent finding (+drowsy) Respiratory/Chest: no respiratory distress, no accessory muscle use Cardiovascular: regular rate, rhythm, no edema, no murmur Neurologic/Psychiatric: no motor/sensory deficits, alert, normal mood/affect Laboratory Results Last 24 Hours Test 10/03/17 05:30 White Blood Count 17.06 K/uL Red Blood Count 2.23 M/uL Hemoglobin 7.0 g/dL Hematocrit 21.8 % Mean Corpuscular Volume 97.8 fL Mean Corpuscular Hemoglobin 31.4 pg Mean Corpuscular Hemoglobin Concent 32.1 g/dl RDW Standard Deviation 63.4 fL RDW Coefficient of Variation 18.0 % Platelet Count 187 K/uL Mean Platelet Volume 8.4 fL Nucleated RBC Absolute Count (auto) 0.06 K/uL Nucleated Red Blood Cells % 0.3 % Prothrombin Time 15.6 SECONDS Prothromb Time International Ratio 1.5 Sodium Level 136 mmol/L Potassium Level 4.2 mmol/L Chloride Level 107 mmol/L Carbon Dioxide Level 23 mmol/L Anion Gap 6.0 mmol/L Blood Urea Nitrogen 44 mg/dl Creatinine 1.93 mg/dl Est Creatinine Clear Calc Drug Dose 39.8 ml/min Estimated GFR () 37.8 Estimated GFR (Non- 32.6 BUN/Creatinine Ratio 22.8 Random Glucose 94 mg/dl Calcium Level 8.1 mg/dl Assessment and Plan This is a 77 year old male with a past medical history of paroxysmal atrial fibrillation on long-term anticoagulation, gouty arthropathy on long-term steroid use, Hx. of CAD s/p CABG, prediabetes, chronic pain syndrome - follows with the pain management clinic - here for a L shoulder surgery Acute Blood Loss Anemia leading to Volume Depletion Acute Kidney Injury - patient with Hgb of 7.0 this morning with a rising creatinine - pretreated with Tylenol and Benadryl - patient was being transfused and developed a drop in blood pressure with systolic BP in the 70s - reaction vs. volume depletion - held transfusion, giving 500mL bolus - monitor BP and will resume transfusion once BP improved after bolus s/p L shoulder arthroplasty 10/03 - POD #1 - Lovenox to Coumadin - further management as per ortho 10/02 - POD #1 - doing well, feels fine in terms of pain - Lovenox for DVT ppx - PT/OT - may need rehab on discharge Paroxysmal A. Fib hx. of PFO - Lovenox to Coumadin bridge - as per Coumadin clinic, will do 100mg of Lovenox q12 from 10/02 to 10/04; will take 5mg of Coumadin on 10/02, 10/03, then regular doses of 5mg on Wednesday and 2.5mg on all other days - Repeat pt/inr on 10/15 at 9am - Lovenox started and teaching already performed Hx. of CAD - s/p CABG - continue aspirin, statin, b-ketan Gouty Arthropathy - continue Prednisone 5mg daily DVT ppx - Lovenox to Coumadin FULL CODE
[2017-10-03] MEDS: PREGABALIN 100 MG CAP PO SCH (14:18)
[2017-10-03 14:56] LABS: HEMATOCRIT 23.8 % (42-52); HEMOGLOBIN 7.8 g/dL (14.0-18.0); MEAN CELL VOLUME 95.6 fL (80-100); MEAN CORPUSCULAR HEMOGLOBIN 31.3 pg (25-34); MEAN CORPUSCULAR HGB CONC 32.8 g/dl (32-36); MEAN PLATELET VOLUME 8.3 fL (7.4-10.4); NUCLEATED RED BLOOD CELL ABS 0.17 K/uL (0-0); PLATELET COUNT 166 K/uL (130-400); RED CELL DISTRIBUTION WIDTH CV 19.3 % (11.5-14.5); RED CELL DISTRIBUTION WIDTH SD 66.5 fL (36.4-46.3); WHITE BLOOD COUNT 17.18 K/uL (4.8-10.8)
[2017-10-03 15:20] LABS: CALCIUM 7.8 mg/dl (8.5-10.1); CREATININE 2.11 mg/dl (0.60-1.40); POTASSIUM 4.2 mmol/L (3.5-5.1)
[2017-10-03] MEDS: WARFARIN SOD 2.5 MG TAB PO SCH (15:39)
[2017-10-03] MEDS: LATANOPROST 0.005% OP SOLN 2.5 ML BTL OP SCH (21:07)
[2017-10-03] MEDS: SENNA 8.6 MG TAB PO SCH (21:09)
[2017-10-03] MEDS: ROSUVASTATIN CALCIUM 10 MG TAB PO SCH (21:09)
[2017-10-03] MEDS: ALLOPURINOL 300 MG TAB PO SCH (21:09)
[2017-10-03] MEDS: ASPIRIN 81 MG ECTAB PO SCH (21:09)
[2017-10-04] VITALS (19 sets, daily range): BP systolic 87–127; BP diastolic 54–85; PULSE 73–98; TEMP 36.4–37; O2SAT 85–100
[2017-10-04] MEDS: OXYCODONE HCL IR 5 MG TAB (IMMEDIATE RELEASE) PO PRN ×3 (02:56→20:57)
[2017-10-04] MEDS: ACETAMINOPHEN 500 MG TAB PO SCH ×3 (05:41→22:46)
[2017-10-04] MEDS: ENOXAPARIN 100 MG/1ML SYR SQ SCH (05:42)
[2017-10-04 06:07] LABS: HEMATOCRIT 21.4 % (42-52); HEMOGLOBIN 6.8 g/dL (14.0-18.0); MEAN CELL VOLUME 96.4 fL (80-100); MEAN CORPUSCULAR HEMOGLOBIN 30.6 pg (25-34); MEAN CORPUSCULAR HGB CONC 31.8 g/dl (32-36); MEAN PLATELET VOLUME 8.4 fL (7.4-10.4); NUCLEATED RED BLOOD CELL ABS 0.13 K/uL (0-0); PLATELET COUNT 156 K/uL (130-400); RED CELL DISTRIBUTION WIDTH CV 19.2 % (11.5-14.5); RED CELL DISTRIBUTION WIDTH SD 66.7 fL (36.4-46.3); WHITE BLOOD COUNT 13.37 K/uL (4.8-10.8)
[2017-10-04 06:19] LABS: BASO % 0.2 %; BASO ABS # 0.03 K/uL (0-0.2); EOS % 0.5 %; EOS ABS # 0.07 K/uL (0-0.5); IG# 0.24 K/uL (0.00-0.02); MONO % 15.2 %; MONO ABS # 2.03 K/uL (0.11-0.59); NEUT % 64.3 %
[2017-10-04] MEDS: FERROUS GLUCONATE 324 MG TAB PO SCH ×3 (07:33→17:29)
[2017-10-04] MEDS: MULTIVITAMIN TAB PO SCH (07:33)
[2017-10-04] MEDS: FUROSEMIDE 20 MG TAB PO SCH (07:33)
[2017-10-04] MEDS: PANTOprazole SOD 40 MG TAB PO SCH (07:34)
[2017-10-04] MEDS: DOCUSATE SODIUM 100 MG CAP PO SCH ×2 (07:34→20:51)
[2017-10-04] MEDS: CeleBREX 200 MG CAP PO SCH ×2 (07:34→20:51)
[2017-10-04] MEDS: TAMSULOSIN HCL 0.4 MG CAP PO SCH (07:34)
[2017-10-04] MEDS: POTASSIUM CITRATE 10 MEQ TAB PO SCH ×2 (07:35→20:53)
[2017-10-04] MEDS: SOTALOL HCL 80 MG TAB PO SCH ×2 (07:44→20:50)
[2017-10-04] MEDS ORDERED: SODIUM CHLORIDE 0.9% 1000ML 1,000 ML IV SCH (07:45)
--- NOTE | 2017-10-04 08:19 | Orthopedic Progress Note ---
Orthopedic Progress Note Date of Service Oct 04, 2017. Subjective Post OP Day: 3 Reports: feeling well, light headedness, Denies: complaints, chest pain, SOB, nausea / vomiting, calf pain Additional Notes: Patient notices some light headedness when getting up to be assisted to the bathroom and he feels weak. Objective calves soft nontender, N/V intact, dressing C/D/I, A&O x3, toes mobile Diffuse ecchymosis across the shoulder. Neurovascularly intact. Patient is able to move his fingers and has good pulses distally. His sat is 98% on 4L of O2. Date Time Temp Pulse Resp B/P (MAP) Pulse Ox O2 Delivery O2 Flow Rate FiO2 10/04/17 07:29 93 124/85 (98) 10/04/17 06:15 36.6 98 20 111/67 (82) 95 Room Air 10/04/17 06:04 78 96 Oxymask 5.0 10/04/17 06:04 85 Nasal Cannula 2.0 10/03/17 23:24 73 97 Oxymask 3.0 10/03/17 23:20 Oxymask 3.0 10/03/17 22:42 36.5 82 20 94/58 (70) 99 Nasal Cannula 5.0 10/03/17 20:55 98/59 (72) 10/03/17 15:47 36.5 80 14 90/57 (68) 98 Oxymask 5.0 10/03/17 15:30 Oxymask 5.0 10/03/17 12:10 36.4 75 106/67 97 4.0 10/03/17 11:51 36.4 74 106/58 97 10/03/17 11:37 36.0 68 105/68 98 4.0 10/03/17 11:23 36.6 68 104/63 98 4.0 10/03/17 11:08 74 12 129/76 (93) 98 Oxymask 4.0 10/03/17 10:45 68 11 109/67 (81) 94 Oxymask 4.0 10/03/17 10:27 97/60 (72) 98 Oxymask 6.0 10/03/17 10:21 68 103/64 (77) 97 Oxymask 6.0 10/03/17 10:15 73 103/65 (78) 99 Oxymask 6.0 10/03/17 10:06 96/63 (74) 10/03/17 10:01 86/55 (65) 10/03/17 09:45 36.4 73 72/39 95 10/03/17 09:15 36.5 76 18 89/50 95 3.0 10/03/17 09:00 36.3 78 18 99/62 92 3.0 10/03/17 08:35 36.5 71 18 104/53 97 3.0 Laboratory Results 24 Hours: Test 10/03/17 14:49 10/04/17 05:29 Hematocrit 23.8 % 21.4 % Hemoglobin 7.8 g/dL 6.8 g/dL White Blood Count 13.37 K/uL Red Blood Count 2.22 M/uL Mean Corpuscular Volume 96.4 fL Mean Corpuscular Hemoglobin 30.6 pg Mean Corpuscular Hemoglobin Concent 31.8 g/dl Platelet Count 156 K/uL Mean Platelet Volume 8.4 fL Neutrophils (%) (Auto) 64.3 % Lymphocytes (%) (Auto) 18.0 % Monocytes (%) (Auto) 15.2 % Eosinophils (%) (Auto) 0.5 % Basophils (%) (Auto) 0.2 % Neutrophils # (Auto) 8.60 K/uL Lymphocytes # (Auto) 2.40 K/uL Monocytes # (Auto) 2.03 K/uL Eosinophils # (Auto) 0.07 K/uL Basophils # (Auto) 0.03 K/uL Assessment & Plan Assessment: Postop day 3 status post left reverse total shoulder arthroplasty post-op anemia Hgb 6.8 with 2 units of PRBC order will keep over to monitor H/H next morning will look into possible HSNVR Plan: [facility] for acute rehab if accepted. Patient is amenable to this. Warfarin for DVT prophylaxis post-op acute anemia Hgb 6.8. 2 units of PRBC were order. Will check H/H tomorrow morning. Discharge Planning Discharge Planning: uncertain
--- NOTE | 2017-10-04 09:39 | Anesthesiology Progress Note ---
Anesthesia Post Op Note Date & Time Oct 04, 2017 at 09:39 Vital Signs Pain Intensity: 0.0 Vital Signs Past 12 Hours Date Time Temp Pulse Resp B/P (MAP) Pulse Ox O2 Delivery O2 Flow Rate FiO2 10/04/17 09:24 36.5 78 18 95/61 100 4.0 10/04/17 09:04 37.0 81 20 88/54 97 4.0 10/04/17 08:54 89/56 (67) 10/04/17 08:49 82 14 87/54 (65) 95 Oxymask 4.0 10/04/17 07:40 Oxymask 4.0 10/04/17 07:29 93 124/85 (98) 10/04/17 06:15 36.6 98 20 111/67 (82) 95 Room Air 10/04/17 06:04 78 96 Oxymask 5.0 10/04/17 06:04 85 Nasal Cannula 2.0 10/03/17 23:24 73 97 Oxymask 3.0 10/03/17 23:20 Oxymask 3.0 10/03/17 22:42 36.5 82 20 94/58 (70) 99 Nasal Cannula 5.0 Notes Mental Status: alert / awake / arousable, participated in evaluation Pt Amnestic to Procedure: Yes Nausea / Vomiting: adequately controlled Pain: adequately controlled Airway Patency, RR, SpO2: stable & adequate BP & HR: stable & adequate Hydration State: stable & adequate Anesthetic Complications: no major complications apparent
--- NOTE | 2017-10-04 10:24 | Progress Note ---
Subjective Date of Service: Oct 04, 2017. Subjective Pt evaluation today including: conversation w/ patient, physical exam, lab review, review of studies, review of inpatient medication list Saw/examined the patient in room 320 Hgb is low this morning, as per nursing, he is lethargic/tired He states he feels fine though and denies any symptoms besides some pain at the site of surgery Review of Systems Constitutional: + weakness, No fever, No chills Respiratory: No cough, No sputum, No shortness of breath Cardiac: No chest pain, No edema Abdomen: No pain, No nausea, No vomiting, No diarrhea Musculoskeletal: + joint pain Medications Current Inpatient Medications Medications (Trade) Dose Ordered Sig/Fortino Route Start Time Stop Time Status Last Admin Dose Admin Diphenhydramine HCl (Benadryl Cap) 25 mg Q8 PRN PO 10/01/17 09:45 10/31/17 09:44 Zolpidem Tartrate (Ambien Tab) 5 mg HSZ PRN PO 10/01/17 09:45 10/31/17 09:44 Ondansetron HCl (Zofran Inj) 4 mg Q6H PRN IV 10/01/17 09:45 10/31/17 09:44 Al Hydroxide/Mg Hydroxide (Maalox Susp) 30 ml Q4H PRN PO 10/01/17 09:45 10/31/17 09:44 Celecoxib (CeleBREX CAP) 200 mg BID PO 10/01/17 21:00 10/31/17 20:59 10/04/17 07:34 200 MG Oxycodone HCl (Roxicodone Immediate Rel Tab) `1-2 TABS FOR PAIN `1 TAB... Q4H PRN PO 10/01/17 09:45 10/15/17 09:44 10/04/17 02:56 10 MG Acetaminophen (Tylenol Tab) 1,000 mg Q8 PO 10/01/17 14:00 10/31/17 13:59 10/04/17 05:41 1,000 MG Morphine Sulfate (MoRPHine SULFATE INJ) 2 mg Q4H PRN IV 10/01/17 09:45 10/15/17 09:44 10/03/17 03:38 2 MG Magnesium Hydroxide (Milk Of Magnesia Susp) 30 ml Q6H PRN PO 10/01/17 09:45 10/31/17 09:44 Bisacodyl (Dulcolax Supp) 10 mg DAILY PRN AL 10/01/17 09:45 10/31/17 09:44 Sodium Biphosphate/ Sodium Phosphate (Fleet Enema) 132 ml DAILY PRN AL 10/01/17 09:45 10/31/17 09:44 Senna (Senokot Tab) 17.2 mg HS PO 10/01/17 21:00 10/31/17 20:59 10/03/17 21:09 17.2 MG Docusate Sodium (coLACE CAP) 100 mg BID PO 10/01/17 21:00 10/31/17 20:59 10/04/17 07:34 100 MG Multivitamins (Multivitamin Tab) 1 tab DAILY PO 10/02/17 09:00 11/01/17 08:59 10/04/17 07:33 1 TAB Ferrous Gluconate (Ferrous Gluconate Tab) 324 mg TIDM PO 10/01/17 12:30 10/31/17 12:29 10/04/17 07:33 324 MG Allopurinol (Zyloprim Tab) 300 mg QPM PO 10/01/17 21:00 10/31/17 20:59 10/03/17 21:09 300 MG Aspirin (Ecotrin Tab) 81 mg QPM PO 10/01/17 21:00 10/31/17 20:59 10/03/17 21:09 81 MG Furosemide (Lasix Tab) 20 mg QAM PO 10/02/17 09:00 11/01/17 08:59 Future Hold 10/04/17 07:33 20 MG Latanoprost (Xalatan Oph Soln) 1 drops HS OP 10/01/17 21:00 10/31/17 20:59 10/03/17 21:07 1 DROPS Nitroglycerin (Nitrostat Tab) 0.4 mg UD PRN UT 10/01/17 09:45 10/31/17 09:44 Prednisone (PredniSONE TAB) 5 mg QAM PO 10/02/17 09:00 11/01/17 08:59 10/04/17 07:33 5 MG Rosuvastatin Calcium (Crestor Tab) 10 mg QPM PO 10/01/17 21:00 10/31/17 20:59 4/15/18 21:09 10 MG Sotalol HCl (Betapace Tab) 80 mg BID PO 10/01/17 21:00 10/31/17 20:59 10/04/17 07:44 80 MG Tamsulosin HCl (Flomax Cap) 0.4 mg QAM PO 10/02/17 09:00 11/01/17 08:59 10/04/17 07:34 0.4 MG Warfarin Sodium (Coumadin Tab) 2.5 mg SuTuWeThFrSa@1600 PO 10/01/17 16:00 10/31/17 15:59 10/03/17 15:39 2.5 MG Pantoprazole Sodium (Protonix Tab) 40 mg QAM PO 10/02/17 09:00 11/01/17 08:59 10/04/17 07:34 40 MG Potassium Citrate (Urocit-K Tab) 10 meq QPM PO 10/01/17 21:00 10/31/17 20:59 10/03/17 21:09 10 MEQ Warfarin Sodium (Coumadin Tab) 5 mg Mo@1600 PO 10/04/17 16:00 11/03/17 15:59 Potassium Citrate (Urocit-K Tab) 10 meq DAILY PO 10/02/17 09:00 11/01/17 08:59 10/04/17 07:35 10 MEQ Pregabalin (Lyrica Cap) 200 mg DAILY@1500 PO 10/01/17 15:00 10/31/17 14:59 10/03/17 14:18 200 MG Enoxaparin Sodium (Lovenox Inj) 100 mg Q12@0600,1800 SQ 10/02/17 18:00 10/31/17 17:14 Future Hold 10/04/17 05:42 100 MG Sodium Chloride 1,000 ml @ 100 mls/hr Q10H IV 10/04/17 07:45 10/04/17 17:44 10/04/17 08:43 100 MLS/HR Objective Vital Signs Date Time Temp Pulse Resp B/P (MAP) Pulse Ox O2 Delivery O2 Flow Rate FiO2 10/04/17 10:10 36.5 75 20 93/59 100 4.0 10/04/17 09:50 36.5 75 18 100/65 100 4.0 10/04/17 09:24 36.5 78 18 95/61 100 4.0 10/04/17 09:04 37.0 81 20 88/54 97 4.0 10/04/17 08:54 89/56 (67) 10/04/17 08:49 82 14 87/54 (65) 95 Oxymask 4.0 10/04/17 07:40 Oxymask 4.0 10/04/17 07:29 93 124/85 (98) 10/04/17 06:15 36.6 98 20 111/67 (82) 95 Room Air 10/04/17 06:04 78 96 Oxymask 5.0 10/04/17 06:04 85 Nasal Cannula 2.0 10/03/17 23:24 73 97 Oxymask 3.0 10/03/17 23:20 Oxymask 3.0 10/03/17 22:42 36.5 82 20 94/58 (70) 99 Nasal Cannula 5.0 10/03/17 20:55 98/59 (72) 10/03/17 15:47 36.5 80 14 90/57 (68) 98 Oxymask 5.0 10/03/17 15:30 Oxymask 5.0 10/03/17 12:10 36.4 75 106/67 97 4.0 10/03/17 11:51 36.4 74 106/58 97 10/03/17 11:37 36.0 68 105/68 98 4.0 10/03/17 11:23 36.6 68 104/63 98 4.0 10/03/17 11:08 74 12 129/76 (93) 98 Oxymask 4.0 10/03/17 10:45 68 11 109/67 (81) 94 Oxymask 4.0 10/03/17 10:27 97/60 (72) 98 Oxymask 6.0 10/03/17 10:21 68 103/64 (77) 97 Oxymask 6.0 Physical Exam General Appearance: no apparent distress, + pertinent finding (+drowsy) Respiratory/Chest: lungs clear, normal breath sounds, no respiratory distress, no accessory muscle use Cardiovascular: regular rate, rhythm, no edema, no murmur Neurologic/Psychiatric: alert, normal mood/affect Laboratory Results Last 24 Hours Test 10/03/17 14:49 10/04/17 05:29 White Blood Count 17.18 K/uL 13.37 K/uL Red Blood Count 2.49 M/uL 2.22 M/uL Hemoglobin 7.8 g/dL 6.8 g/dL Hematocrit 23.8 % 21.4 % Mean Corpuscular Volume 95.6 fL 96.4 fL Mean Corpuscular Hemoglobin 31.3 pg 30.6 pg Mean Corpuscular Hemoglobin Concent 32.8 g/dl 31.8 g/dl RDW Standard Deviation 66.5 fL 66.7 fL RDW Coefficient of Variation 19.3 % 19.2 % Platelet Count 166 K/uL 156 K/uL Mean Platelet Volume 8.3 fL 8.4 fL Nucleated RBC Absolute Count (auto) 0.17 K/uL 0.13 K/uL Nucleated Red Blood Cells % 1.0 % 1.0 % Sodium Level 138 mmol/L Potassium Level 4.2 mmol/L Chloride Level 108 mmol/L Carbon Dioxide Level 23 mmol/L Anion Gap 7.0 mmol/L Blood Urea Nitrogen 43 mg/dl Creatinine 2.11 mg/dl Est Creatinine Clear Calc Drug Dose 36.4 ml/min Estimated GFR () 34.0 Estimated GFR (Non- 29.3 BUN/Creatinine Ratio 20.3 Random Glucose 102 mg/dl Calcium Level 7.8 mg/dl Neutrophils (%) (Auto) 64.3 % Lymphocytes (%) (Auto) 18.0 % Monocytes (%) (Auto) 15.2 % Eosinophils (%) (Auto) 0.5 % Basophils (%) (Auto) 0.2 % Neutrophils # (Auto) 8.60 K/uL Lymphocytes # (Auto) 2.40 K/uL Monocytes # (Auto) 2.03 K/uL Eosinophils # (Auto) 0.07 K/uL Basophils # (Auto) 0.03 K/uL Immature Granulocyte % (Auto) 1.8 % Immature Granulocyte # (Auto) 0.24 K/uL Anisocytosis PRESENT Assessment and Plan This is a 77 year old male with a past medical history of paroxysmal atrial fibrillation on long-term anticoagulation, gouty arthropathy on long-term steroid use, Hx. of CAD s/p CABG, prediabetes, chronic pain syndrome - follows with the pain management clinic - here for a L shoulder surgery Acute Blood Loss Anemia leading to Volume Depletion Acute Kidney Injury 10/04 - Hgb dropped to 6.8 - creatinine increasing - will give another unit of pRBCs - will stop Lovenox injections - continue Coumadin, recheck H/H, INR in the afternoon - added IVFs after the transfusion - stopped PATRICK-I and Lasix 10/03 - patient with Hgb of 7.0 this morning with a rising creatinine - pretreated with Tylenol and Benadryl - patient was being transfused and developed a drop in blood pressure with systolic BP in the 70s - reaction vs. volume depletion - held transfusion, giving 500mL bolus - monitor BP and will resume transfusion once BP improved after bolus Hypocalcemia - Ca levels are dropping - will check Vitamin D, Mag, Phos levels - may need oral supplementation s/p L shoulder arthroplasty 10/03 - POD #1 - Lovenox to Coumadin - further management as per ortho 10/02 - POD #1 - doing well, feels fine in terms of pain - Lovenox for DVT ppx - PT/OT - may need rehab on discharge Paroxysmal A. Fib hx. of PFO - Lovenox to Coumadin bridge - as per Coumadin clinic, will do 100mg of Lovenox q12 from 10/02 to 10/04; will take 5mg of Coumadin on 10/02, 10/03, then regular doses of 5mg on Wednesday and 2.5mg on all other days - Repeat pt/inr on 10/15 at 9am - Lovenox started and teaching already performed Hx. of CAD - s/p CABG - continue aspirin, statin, b-ketan Gouty Arthropathy - continue Prednisone 5mg daily DVT ppx - Lovenox to Coumadin FULL CODE
[2017-10-04] MEDS: PREGABALIN 100 MG CAP PO SCH (14:07)
[2017-10-04 14:31] LABS: HEMATOCRIT 22.5 % (42-52); HEMOGLOBIN 7.3 g/dL (14.0-18.0)
[2017-10-04 14:38] LABS: INR 1.7 (0.9-1.1)
[2017-10-04 14:53] LABS: CALCIUM 7.9 mg/dl (8.5-10.1); CREATININE 1.85 mg/dl (0.60-1.40); PHOSPHORUS 2.7 mg/dl (2.5-4.9); POTASSIUM 4.5 mmol/L (3.5-5.1)
[2017-10-04] MEDS ORDERED: WARFARIN SOD 5 MG TAB PO SCH (16:00)
[2017-10-04] MEDS: LATANOPROST 0.005% OP SOLN 2.5 ML BTL OP SCH (20:49)
[2017-10-04] MEDS: SENNA 8.6 MG TAB PO SCH (20:52)
[2017-10-04] MEDS: ROSUVASTATIN CALCIUM 10 MG TAB PO SCH (20:52)
[2017-10-04] MEDS: ASPIRIN 81 MG ECTAB PO SCH (20:52)
[2017-10-04] MEDS: ALLOPURINOL 300 MG TAB PO SCH (20:53)
[2017-10-05] VITALS (9 sets, daily range): BP systolic 83–126; BP diastolic 56–74; PULSE 71–130; TEMP 36.5–36.9; O2SAT 92–99
[2017-10-05] MEDS: ACETAMINOPHEN 500 MG TAB PO SCH ×3 (05:34→20:56)
[2017-10-05 06:29] LABS: HEMATOCRIT 24.2 % (42-52); HEMOGLOBIN 7.8 g/dL (14.0-18.0); MEAN CELL VOLUME 95.7 fL (80-100); MEAN CORPUSCULAR HEMOGLOBIN 30.8 pg (25-34); MEAN CORPUSCULAR HGB CONC 32.2 g/dl (32-36); MEAN PLATELET VOLUME 8.6 fL (7.4-10.4); NUCLEATED RED BLOOD CELL ABS 0.16 K/uL (0-0); PLATELET COUNT 158 K/uL (130-400); RED CELL DISTRIBUTION WIDTH CV 19.9 % (11.5-14.5); RED CELL DISTRIBUTION WIDTH SD 67.2 fL (36.4-46.3); WHITE BLOOD COUNT 11.03 K/uL (4.8-10.8)
--- NOTE | 2017-10-05 06:49 | Orthopedic Progress Note ---
Orthopedic Progress Note Date of Service Oct 05, 2017. Subjective Post OP Day: 4 Reports: feeling well, Denies: complaints, chest pain, SOB, nausea / vomiting, light headedness, calf pain Additional Notes: Patient states he is doing better compared to yesterday. He is not having drowsiness or light headedness. Objective calves soft nontender, N/V intact, capillary refill less than 2 sec., dressing C /D/I, A&O x3, toes mobile Diffuse ecchymosis across the left shoulder. Patient is Neurovascularly intact with pulses distally and normal sensation. Date Time Temp Pulse Resp B/P (MAP) Pulse Ox O2 Delivery O2 Flow Rate FiO2 10/05/17 00:05 Oxymask 4.0 10/04/17 23:02 36.6 80 17 92/54 (67) 99 Oxymask 4.0 10/04/17 17:40 36.4 79 14 127/75 (92) 100 Oxymask 4.0 10/04/17 16:40 36.4 73 14 102/54 (70) 99 Oxymask 4.0 10/04/17 16:10 36.5 75 14 89/57 (68) 99 Oxymask 4.0 10/04/17 15:55 36.5 78 14 96/62 (73) 99 Oxymask 4.0 10/04/17 15:40 36.7 77 18 94/60 (71) 100 Oxymask 4.0 10/04/17 15:35 36.7 77 18 94/60 100 4.0 10/04/17 15:20 100 Oxymask 4.0 10/04/17 12:34 36.4 75 18 109/69 99 4.0 10/04/17 11:08 36.4 78 17 92/59 100 4.0 10/04/17 10:10 36.5 75 20 93/59 100 4.0 10/04/17 09:50 36.5 75 18 100/65 100 4.0 10/04/17 09:24 36.5 78 18 95/61 100 4.0 10/04/17 09:04 37.0 81 20 88/54 97 4.0 10/04/17 08:54 89/56 (67) 10/04/17 08:49 82 14 87/54 (65) 95 Oxymask 4.0 10/04/17 07:40 Oxymask 4.0 10/04/17 07:29 93 124/85 (98) Laboratory Results 24 Hours: Test 10/04/17 14:18 10/05/17 06:00 Hematocrit 22.5 % 24.2 % Hemoglobin 7.3 g/dL 7.8 g/dL Prothromb Time International Ratio 1.7 Prothrombin Time 17.2 SECONDS Assessment & Plan Assessment: Postop day 4 status post left reverse total shoulder arthroplasty post-op anemia Hgb 7.8 after a total of 3 units of PRBCs will look into possible HSNVR Plan: [facility] for acute rehab if accepted. Patient is amenable to this. Warfarin for DVT prophylaxis post-op acute anemia Hgb 7.8 after a total of 3 units of PRBCs given. Patient denies symptoms at this time. Patient is O2 sats are at 99% with 4L of oxygen. Discharge Planning Discharge Planning: uncertain
--- NOTE | 2017-10-05 06:51 | Discharge Instructions ---
Discharge Instructions Date of Service Oct 05, 2017. Admission Reason for Admission: Left Shoulder Osteoarthritis Discharge Discharge Diagnosis / Problem: S/P Left reverse TSA Discharge Goals Goal(s): Decrease discomfort, Improve function Activity Recommendations Activity Limitations: per Instructions/Follow-up section . Instructions / Follow-Up Instructions / Follow-Up ACTIVITY RECOMMENDATIONS: SELF CARE INSTRUCTIONS AFTER TOTAL SHOULDER ARTHROPLASTY REVERSE A. You may do daily exercises as taught in physical therapy while in hospital. No lifting with the operative arm. B. You are to wear your sling/immobilizer at all times EXCEPT when performing your daily exercises and for hygiene purposes. C. You may perform dry, daily dressing changes. Please keep your incision covered. You may shower 48 hours after surgery. Do not apply soap or any ointment/ lotions directly over incision. Do not soak incision in bath tub/swimming pool. D. You may use ice as needed to operative shoulder. SPECIAL CARE INSTRUCTIONS: VERY IMPORTANT TO READ AND REVIEW A. There are a few signs you need to watch for after you are home. Call [facility] at [phone] if you experience any of the followin. Increased severe shoulder pain. Some pain is expected especially when you exercise. 2. Increased swelling in you shoulder or arm; pain or swelling in either upper extremity. 3. Any fluid drainage from the incision. 4. Shortness of breath or chest pain. B. Please call [facility] at [phone] if you have any questions or concerns about your operation or recovery. C. Call your physician if: 1. Temperature is greater than 101 degrees (F). 2. Pain is not relieved by prescribed pain medications. 3. Increase drainage or redness from incision. 4. Unanswered questions or concerns. FOLLOW UP VISIT: Please call [facility] at [phone] to schedule a follow up appointment with Dr. Cobian or his PA in 12-14 days from your surgery date. Current Hospital Diet Patient's current hospital diet: Regular Diet Discharge Diet Recommended Diet: Regular Diet Procedures Procedures Performed: Left reverse total shoulder arthroplasty Pending Studies Studies pending at discharge: no Laboratory Results Hemoglobin A1c Test 08/31/17 14:56 Range/Units Estimated Average Glucose 117 mg/dl Hemoglobin A1c 5.7 H 4.5-5.6 % Medical Emergencies . Who to Call and When: Medical Emergencies: If at any time you feel your situation is an emergency, please call 911 immediately. . Non-Emergent Contact Non-Emergency issues call your: Surgeon Call Non-Emergent contact if: temperature is above 101.5, your pain is worsening, wound has increased drainage, wound has increased redness . "Provider Documentation" section prepared by Garrett Westbrook. . [place] Drug Monitoring Program Search Results: patient reviewed within database, no issues identified
[2017-10-05 07:02] LABS: CREATININE 1.57 mg/dl (0.60-1.40); POTASSIUM 4.2 mmol/L (3.5-5.1)
[2017-10-05] MEDS: FERROUS GLUCONATE 324 MG TAB PO SCH ×3 (09:04→17:41)
[2017-10-05] MEDS: MULTIVITAMIN TAB PO SCH (09:04)
[2017-10-05] MEDS: SOTALOL HCL 80 MG TAB PO SCH ×2 (09:04→20:55)
[2017-10-05] MEDS: DOCUSATE SODIUM 100 MG CAP PO SCH ×2 (09:04→20:52)
[2017-10-05] MEDS: TAMSULOSIN HCL 0.4 MG CAP PO SCH (09:04)
[2017-10-05] MEDS: CeleBREX 200 MG CAP PO SCH ×2 (09:04→20:54)
[2017-10-05] MEDS: PANTOprazole SOD 40 MG TAB PO SCH (09:04)
[2017-10-05] MEDS: POTASSIUM CITRATE 10 MEQ TAB PO SCH ×2 (09:04→20:55)
[2017-10-05] MEDS: OXYCODONE HCL IR 5 MG TAB (IMMEDIATE RELEASE) PO PRN ×3 (11:37→23:50)
[2017-10-05] MEDS: PREGABALIN 100 MG CAP PO SCH (14:20)
[2017-10-05] MEDS: WARFARIN SOD 2.5 MG TAB PO SCH (16:06)
--- NOTE | 2017-10-05 18:29 | Progress Note ---
Internal Med Progress Note Date of Service: Oct 05, 2017. Provider Documentation: SUBJECTIVE: Patient seen and examined at bedside. No acute distress. He had recent dressing machine overhauler the left shoulder OBJECTIVE: General Appearance: no apparent distress Respiratory/Chest: lungs clear, normal breath sounds, no respiratory distress, no accessory muscle use Cardiovascular: regular rate, rhythm, no edema, no murmur Abdomen: soft, nontender, + bowel sounds Neurologic/Psychiatric: alert, normal mood/affect Extremities: left arm in sling, dressing machine overhauler the left shoulder is clean and dry ASSESSMENT & PLAN: Medical Consultation follow up note This is a 77 year old male with a past medical history of paroxysmal atrial fibrillation on long-term anticoagulation, gouty arthropathy on long-term steroid use, Hx. of CAD s/p CABG, prediabetes, chronic pain syndrome with: Left shoulder rotator cuff arthropathy and s/p Left reverse total shoulder arthroplasty on 10/01/17 and has had Acute Blood Loss Anemia leading to Volume Depletion and Acute Kidney Injury -Patient is s/p 3 units of PRBC on this admission -History of CAD with CABG and medication include aspirin, statin, b-ketan -Is on Coumadin for Paroxysmal A. Fib and history of PFO -INR on 10/05/17 in 1.7, is on full dose lovenox while receiving coumadin to bridge to therapeutic INR -Acute kidney injury resolving with downtrending creatinine -Hypocalcemia: serum calcium in an adult is normally 8.5-10.2 mg/dL and originally patient's serum calcium was 9.4 but patient's calcium level is around 8 in recent days with recent labs for normal albumin near 4, patient has normal levels of vitamin D, serum Magnesium, serum Phosphorus levels. Calcium gluconate IV 1 gram ordered -history of Gouty Arthropathy, continue Prednisone 5mg daily -pain management and wound care as per orthopedics DVT ppx - Lovenox with Coumadin FULL CODE Vital Signs: Date Time Temp Pulse Resp B/P (MAP) Pulse Ox O2 Delivery O2 Flow Rate FiO2 10/05/17 17:43 126/74 (91) 10/05/17 15:32 36.9 80 19 83/56 (65) 95 Room Air 10/05/17 11:00 90 10/05/17 09:20 94 Room Air 10/05/17 08:47 130 4/17/18 07:41 Nasal Cannula 4.0 Oxymask 10/05/17 07:04 36.5 71 18 120/72 (88) 99 Oxymask 4.0 10/05/17 00:05 Oxymask 4.0 10/04/17 23:02 36.6 80 17 92/54 (67) 99 Oxymask 4.0 Lab Results: Results Past 24 Hours Test 10/05/17 06:00 Range/Units White Blood Count 11.03 4.8-10.8 K/uL Red Blood Count 2.53 4.7-6.1 M/uL Hemoglobin 7.8 14.0-18.0 g/dL Hematocrit 24.2 42-52 % Mean Corpuscular Volume 95.7 80-100 fL Mean Corpuscular Hemoglobin 30.8 25-34 pg Mean Corpuscular Hemoglobin Concent 32.2 32-36 g/dl RDW Standard Deviation 67.2 36.4-46.3 fL RDW Coefficient of Variation 19.9 11.5-14.5 % Platelet Count 158 130-400 K/uL Mean Platelet Volume 8.6 7.4-10.4 fL Nucleated RBC Absolute Count (auto) 0.16 0-0 K/uL Nucleated Red Blood Cells % 1.4 % Sodium Level 140 136-145 mmol/L Potassium Level 4.2 3.5-5.1 mmol/L Chloride Level 110 98-107 mmol/L Carbon Dioxide Level 23 21-32 mmol/L Anion Gap 6.0 3-11 mmol/L Blood Urea Nitrogen 32 7-18 mg/dl Creatinine 1.57 0.60-1.40 mg/dl Est Creatinine Clear Calc Drug Dose 48.9 ml/min Estimated GFR () 48.6 Estimated GFR (Non- 41.9 BUN/Creatinine Ratio 20.2 10-20 Random Glucose 88 70-99 mg/dl Calcium Level 8.0 8.5-10.1 mg/dl
[2017-10-05] MEDS ORDERED: CALCIUM GLUCONATE 10% 1,000 MG in SODIUM CHLORIDE 0.9% 50ML 50 ML IV ONE (19:00)
[2017-10-05] MEDS: LATANOPROST 0.005% OP SOLN 2.5 ML BTL OP SCH (20:50)
[2017-10-05] MEDS: SENNA 8.6 MG TAB PO SCH (20:52)
[2017-10-05] MEDS: ASPIRIN 81 MG ECTAB PO SCH (20:55)
[2017-10-05] MEDS: ALLOPURINOL 300 MG TAB PO SCH (20:55)
[2017-10-05] MEDS: ROSUVASTATIN CALCIUM 10 MG TAB PO SCH (20:55)
[2017-10-06] MEDS: ACETAMINOPHEN 500 MG TAB PO SCH ×3 (06:04→22:02)
[2017-10-06] MEDS: OXYCODONE HCL IR 5 MG TAB (IMMEDIATE RELEASE) PO PRN ×3 (06:05→16:09)
[2017-10-06 06:56] VITALS: BP 93/58; PULSE 75; TEMP 36.9; O2SAT 94
--- NOTE | 2017-10-06 07:27 | Orthopedic Progress Note ---
Orthopedic Progress Note Date of Service Oct 06, 2017. Subjective Reports: feeling well, Denies: complaints, chest pain Objective incision is clean, no erythema, continued sersang drainage, NVI Date Time Temp Pulse Resp B/P (MAP) Pulse Ox O2 Delivery O2 Flow Rate FiO2 10/06/17 06:56 36.9 75 20 93/58 (70) 94 Room Air 10/05/17 23:15 92 Room Air 10/05/17 23:03 36.9 77 16 91/56 (68) 93 Room Air 10/05/17 17:43 126/74 (91) 10/05/17 15:32 36.9 80 19 83/56 (65) 95 Room Air 10/05/17 15:30 96 Room Air 2.0 10/05/17 11:00 90 10/05/17 09:20 94 Room Air 10/05/17 08:47 130 10/05/17 07:41 Nasal Cannula 4.0 Oxymask Assessment & Plan Assessment: Postop day 4 status post left reverse total shoulder arthroplasty post-op anemia Hgb 7.8 after a total of 3 units of PRBCs will look into possible HSNVR Continues to have serosang drainage from wound. Hgb drop was likely into wound and now has significant hematoma. Will plan for evacuation of hematoma tomorrow. No INR or H/H back yet this am. Will re-order. Depending on INR may need to give vit K to reverse and get INR down. Discussed with patient and he agrees. Plan[facility] Patient is amenable to this. Warfarin for DVT prophylaxis post-op acute anemia Hgb 7.8 after a total of 3 units of PRBCs given. Patient denies symptoms at this time. Patient is O2 sats are at 99% with 4L of oxygen. Discharge Planning Discharge Planning: uncertain
[2017-10-06 08:03] LABS: INR 2.4 (0.9-1.1)
[2017-10-06 08:04] LABS: HEMATOCRIT 23.5 % (42-52); HEMOGLOBIN 7.6 g/dL (14.0-18.0); MEAN CELL VOLUME 96.7 fL (80-100); MEAN CORPUSCULAR HEMOGLOBIN 31.3 pg (25-34); MEAN CORPUSCULAR HGB CONC 32.3 g/dl (32-36); MEAN PLATELET VOLUME 8.7 fL (7.4-10.4); NUCLEATED RED BLOOD CELL ABS 0.15 K/uL (0-0); PLATELET COUNT 190 K/uL (130-400); RED CELL DISTRIBUTION WIDTH CV 19.8 % (11.5-14.5); RED CELL DISTRIBUTION WIDTH SD 66.1 fL (36.4-46.3); WHITE BLOOD COUNT 11.38 K/uL (4.8-10.8)
[2017-10-06] MEDS: DOCUSATE SODIUM 100 MG CAP PO SCH ×2 (09:00→20:38)
[2017-10-06 09:09] VITALS: O2SAT 92
[2017-10-06] MEDS: MULTIVITAMIN TAB PO SCH (09:31)
[2017-10-06] MEDS: TAMSULOSIN HCL 0.4 MG CAP PO SCH (09:32)
[2017-10-06] MEDS: POTASSIUM CITRATE 10 MEQ TAB PO SCH ×2 (09:32→20:39)
[2017-10-06] MEDS: PANTOprazole SOD 40 MG TAB PO SCH (09:33)
[2017-10-06] MEDS: FERROUS GLUCONATE 324 MG TAB PO SCH ×3 (09:33→18:00)
[2017-10-06] MEDS: CeleBREX 200 MG CAP PO SCH ×2 (09:34→20:39)
[2017-10-06 09:42] VITALS: BP 104/59; PULSE 86
[2017-10-06] MEDS: SOTALOL HCL 80 MG TAB PO SCH ×2 (09:53→20:39)
[2017-10-06] MEDS ORDERED: PHYTONADIONE 5 MG TAB PO STA (10:50)
[2017-10-06] MEDS: PREGABALIN 100 MG CAP PO SCH (14:21)
[2017-10-06 15:04] VITALS: BP 107/68; PULSE 77; TEMP 36.6; O2SAT 95
--- NOTE | 2017-10-06 15:14 | Progress Note ---
Internal Med Progress Note Date of Service: Oct 06, 2017. Provider Documentation: SUBJECTIVE: Patient seen and examined at bedside. No acute distress. OBJECTIVE: General Appearance: no apparent distress Respiratory/Chest: lungs clear, normal breath sounds, no respiratory distress, no accessory muscle use Cardiovascular: regular rate, rhythm, no edema, no murmur Abdomen: soft, nontender, + bowel sounds Neurologic/Psychiatric: alert, normal mood/affect Extremities: left arm in sling, dressing spinning frame changer the left shoulder is with red discoloration ASSESSMENT & PLAN: Medical Consultation follow up note This is a 77 year old male with a past medical history of paroxysmal atrial fibrillation on long-term anticoagulation, gouty arthropathy on long-term steroid use, Hx. of CAD s/p CABG, prediabetes, chronic pain syndrome with: Left shoulder rotator cuff arthropathy and s/p Left reverse total shoulder arthroplasty on 10/01/17 and has had Acute Blood Loss Anemia leading to Volume Depletion and Acute Kidney Injury -Patient is s/p 3 units of PRBC on this admission -History of CAD with CABG and medication include aspirin, statin, b-ketan -Is on Coumadin for Paroxysmal A. Fib and history of PFO -Patient was successfully transitioned with Lovenox to coumadin as INR on is 2.4, however patient will need to return to the operating room as per orthopedics for evacuation of possible left shoulder hematoma the original left shoulder incision site still draining serosanguineous fluid and requiring dressing changes -Lovenox stopped, Coumadin held, and INR to be reversed by the 10 mg oral vitamin ordered by orthopedics for the patient on 10/06/17 -Acute kidney injury resolving with downtrending creatinine -Hypocalcemia: serum calcium in an adult is normally 8.5-10.2 mg/dL and originally patient's serum calcium was 9.4 but patient's calcium level is around 8 in recent days with recent labs for normal albumin near 4, patient has normal levels of vitamin D, serum Magnesium, serum Phosphorus levels. Calcium gluconate IV 1 gram given on 10/05/17 -history of Gouty Arthropathy, continue Prednisone 5mg daily -pain management and wound care as per orthopedics DVT ppx: SCD for now given that Lovenox stopped, Coumadin held, and INR to be reversed FULL CODE Vital Signs: Date Time Temp Pulse Resp B/P (MAP) Pulse Ox O2 Delivery O2 Flow Rate FiO2 10/06/17 15:04 36.6 77 19 107/68 (81) 95 Room Air 10/06/17 09:42 86 104/59 (74) 10/06/17 09:09 92 10/06/17 08:00 Room Air 10/06/17 06:56 36.9 75 20 93/58 (70) 94 Room Air 10/05/17 23:15 92 Room Air 10/05/17 23:03 36.9 77 16 91/56 (68) 93 Room Air 10/05/17 17:43 126/74 (91) 10/05/17 15:32 36.9 80 19 83/56 (65) 95 Room Air 10/05/17 15:30 96 Room Air 2.0 Lab Results: Results Past 24 Hours Test 10/06/17 07:32 Range/Units White Blood Count 11.38 4.8-10.8 K/uL Red Blood Count 2.43 4.7-6.1 M/uL Hemoglobin 7.6 14.0-18.0 g/dL Hematocrit 23.5 42-52 % Mean Corpuscular Volume 96.7 80-100 fL Mean Corpuscular Hemoglobin 31.3 25-34 pg Mean Corpuscular Hemoglobin Concent 32.3 32-36 g/dl RDW Standard Deviation 66.1 36.4-46.3 fL RDW Coefficient of Variation 19.8 11.5-14.5 % Platelet Count 190 130-400 K/uL Mean Platelet Volume 8.7 7.4-10.4 fL Nucleated RBC Absolute Count (auto) 0.15 0-0 K/uL Nucleated Red Blood Cells % 1.3 % Prothrombin Time 24.3 9.0-12.0 SECONDS Prothromb Time International Ratio 2.4 0.9-1.1
[2017-10-06 15:45] VITALS: O2SAT 97
[2017-10-06 20:31] LABS: INR 1.9 (0.9-1.1)
[2017-10-06] MEDS: SENNA 8.6 MG TAB PO SCH (20:38)
[2017-10-06] MEDS: ALLOPURINOL 300 MG TAB PO SCH (20:39)
[2017-10-06] MEDS: ROSUVASTATIN CALCIUM 10 MG TAB PO SCH (20:39)
[2017-10-06] MEDS: ASPIRIN 81 MG ECTAB PO SCH (20:39)
[2017-10-06] MEDS: LATANOPROST 0.005% OP SOLN 2.5 ML BTL OP SCH (20:40)
[2017-10-06 23:10] VITALS: BP 85/45; PULSE 84; TEMP 36.8; O2SAT 93
[2017-10-07] VITALS (12 sets, daily range): BP systolic 97–156; BP diastolic 58–83; PULSE 69–83; TEMP 36.5–37.3; O2SAT 89–98
[2017-10-07] MEDS: OXYCODONE HCL IR 5 MG TAB (IMMEDIATE RELEASE) PO PRN ×3 (00:46→22:59)
[2017-10-07] MEDS: ACETAMINOPHEN 500 MG TAB PO SCH ×3 (05:59→21:50)
[2017-10-07] MEDS ORDERED: CEFAZOLIN SOD 2000MG/15 ML IV PUSH IV SCH (06:00)
[2017-10-07 07:29] LABS: INR 1.3 (0.9-1.1)
[2017-10-07 07:46] LABS: HEMATOCRIT 23.4 % (42-52); HEMOGLOBIN 7.5 g/dL (14.0-18.0); MEAN CELL VOLUME 97.9 fL (80-100); MEAN CORPUSCULAR HEMOGLOBIN 31.4 pg (25-34); MEAN CORPUSCULAR HGB CONC 32.1 g/dl (32-36); MEAN PLATELET VOLUME 8.6 fL (7.4-10.4); NUCLEATED RED BLOOD CELL ABS 0.23 K/uL (0-0); PLATELET COUNT 193 K/uL (130-400); RED CELL DISTRIBUTION WIDTH CV 20.4 % (11.5-14.5); RED CELL DISTRIBUTION WIDTH SD 66.2 fL (36.4-46.3)
[2017-10-07 07:49] LABS: ALBUMIN 2.7 gm/dl (3.4-5.0); CALCIUM 8.5 mg/dl (8.5-10.1); CREATININE 1.34 mg/dl (0.60-1.40); POTASSIUM 4.4 mmol/L (3.5-5.1); TOTAL PROTEIN 5.7 gm/dl (6.4-8.2)
[2017-10-07] MEDS: FERROUS GLUCONATE 324 MG TAB PO SCH ×3 (08:27→19:17)
[2017-10-07] MEDS: DOCUSATE SODIUM 100 MG CAP PO SCH ×2 (08:27→21:08)
[2017-10-07] MEDS: MULTIVITAMIN TAB PO SCH (08:28)
[2017-10-07] MEDS: SOTALOL HCL 80 MG TAB PO SCH ×2 (08:42→21:07)
[2017-10-07] MEDS: PANTOprazole SOD 40 MG TAB PO SCH (08:42)
[2017-10-07] MEDS: TAMSULOSIN HCL 0.4 MG CAP PO SCH (08:42)
[2017-10-07] MEDS: POTASSIUM CITRATE 10 MEQ TAB PO SCH ×2 (08:42→21:07)
[2017-10-07] MEDS: CeleBREX 200 MG CAP PO SCH (08:42)
--- NOTE | 2017-10-07 11:35 | Progress Note ---
Internal Med Progress Note Date of Service: Oct 07, 2017. Provider Documentation: SUBJECTIVE: Patient seen and examined at bedside. No acute distress. 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 of CAD s/p CABG, prediabetes, chronic pain syndrome with: Left shoulder rotator cuff arthropathy and s/p Left reverse total shoulder arthroplasty on 10/01/17 and has had Acute Blood Loss Anemia leading to Volume Depletion and Acute Kidney Injury -Patient is s/p 3 units of PRBC on this admission -History of CAD with CABG and medication include aspirin, statin, b-ketan -Is on Coumadin for Paroxysmal A. Fib and history of PFO -Patient was successfully transitioned with Lovenox to coumadin as INR on is 2.4, however patient will need to return to the operating room as per orthopedics for evacuation of possible left shoulder hematoma the original left shoulder incision site has been draining serosanguineous fluid and requiring dressing changes -Lovenox stopped, Coumadin held, and INR to be reversed by the 10 mg oral vitamin ordered by orthopedics for the patient on 10/06/17 -INR is now 1.3 -patient has total 2 PRBCs on hold in case orthopedic surgeon would like to transfuse blood before or after surgery -patient's recent hypocalcemia during this admission likely due to previous blood transfusions, Calcium gluconate IV 1 gram given on 10/05/17, calcium is 8.5 on 10/07/17, recommend that patient has calcium levels checked after any additional PRBC transfusions -Acute kidney injury resolved -history of Gouty Arthropathy, continue Prednisone 5mg daily -pain management and wound care as per orthopedics DVT ppx: SCD for now given that Lovenox stopped, Coumadin held, and INR reversed FULL CODE Vital Signs: Date Time Temp Pulse Resp B/P (MAP) Pulse Ox O2 Delivery O2 Flow Rate FiO2 10/07/17 07:40 Room Air 10/07/17 07:08 36.6 69 18 97/60 (72) 94 10/06/17 23:15 Room Air 10/06/17 23:10 36.8 84 17 85/45 (58) 93 Room Air 10/06/17 15:45 97 Room Air 10/06/17 15:04 36.6 77 19 107/68 (81) 95 Room Air Lab Results: Results Past 24 Hours Test 10/06/17 19:58 10/07/17 06:57 Range/Units Prothrombin Time 19.9 13.8 9.0-12.0 SECONDS Prothromb Time International Ratio 1.9 1.3 0.9-1.1 White Blood Count 10.70 4.8-10.8 K/uL Red Blood Count 2.39 4.7-6.1 M/uL Hemoglobin 7.5 14.0-18.0 g/dL Hematocrit 23.4 42-52 % Mean Corpuscular Volume 97.9 80-100 fL Mean Corpuscular Hemoglobin 31.4 25-34 pg Mean Corpuscular Hemoglobin Concent 32.1 32-36 g/dl RDW Standard Deviation 66.2 36.4-46.3 fL RDW Coefficient of Variation 20.4 11.5-14.5 % Platelet Count 193 130-400 K/uL Mean Platelet Volume 8.6 7.4-10.4 fL Nucleated RBC Absolute Count (auto) 0.23 0-0 K/uL Nucleated Red Blood Cells % 2.1 % Sodium Level 137 136-145 mmol/L Potassium Level 4.4 3.5-5.1 mmol/L Chloride Level 109 98-107 mmol/L Carbon Dioxide Level 23 21-32 mmol/L Anion Gap 5.0 3-11 mmol/L Blood Urea Nitrogen 20 7-18 mg/dl Creatinine 1.34 0.60-1.40 mg/dl Est Creatinine Clear Calc Drug Dose 57.3 ml/min Estimated GFR () 58.8 Estimated GFR (Non- 50.7 BUN/Creatinine Ratio 14.7 10-20 Random Glucose 100 70-99 mg/dl Calcium Level 8.5 8.5-10.1 mg/dl Total Bilirubin 1.9 0.2-1 mg/dl Aspartate Amino Transf (AST/SGOT) 38 15-37 U/L Alanine Aminotransferase (ALT/SGPT) 15 12-78 U/L Alkaline Phosphatase 48 45-117 U/L Total Protein 5.7 6.4-8.2 gm/dl Albumin 2.7 3.4-5.0 gm/dl Globulin 3.0 2.5-4.0 gm/dl Albumin/Globulin Ratio 0.9 0.9-2
[2017-10-07] MEDS: PREGABALIN 100 MG CAP PO SCH (12:58)
[2017-10-07] MEDS ORDERED: DEXAMETHASONE SOD INJ 4 MG/ML VIAL ONE (14:07)
[2017-10-07] MEDS ORDERED: NEOSTIGMINE METHYLSULFATE 1 MG/ML 10ML VIAL ONE (14:07)
[2017-10-07] MEDS ORDERED: GLYCOPYRROLATE INJ 0.2 MG/ML VIAL ONE (14:07)
[2017-10-07] MEDS ORDERED: FENTANYL CITRATE INJ 50 MCG/1 ML 2 ML VIAL ONE (14:07)
[2017-10-07] MEDS ORDERED: LIDOCAINE HCL 2% 2 ML VIAL (20MG/ML) ONE (14:07)
[2017-10-07] MEDS ORDERED: PROPOFOL IV EMULSION 10 MG/ML 20 ML VIAL IV ONE (14:07)
[2017-10-07] MEDS ORDERED: ONDANSETRON INJ 2 MG/ML 2 ML VIAL ONE (14:07)
[2017-10-07] MEDS ORDERED: MIDAZOLAM HCL 1 MG/ML 2ML VIAL ONE (14:07)
[2017-10-07] MEDS ORDERED: ONDANSETRON INJ 2 MG/ML 2 ML VIAL IV PRN ×2 (14:30→17:15)
[2017-10-07] MEDS ORDERED: ATROPINE SULFATE 0.1 MG/ML 5ML SYR IV PRN (14:30)
[2017-10-07] MEDS ORDERED: EpHEDrine SULFATE INJ 50 MG/ML AMP IV PRN (14:30)
[2017-10-07] MEDS ORDERED: HYDROmorphone INJ 2 MG/ML SYR/VIAL IV PRN (14:30)
[2017-10-07] MEDS ORDERED: PHENYLEPHRINE 100MCG/ML 5ML SYR IV PRN (14:30)
[2017-10-07] MEDS ORDERED: BACITRACIN 50000 UNIT VIAL ONE (15:08)
[2017-10-07] MEDS ORDERED: PHENYLEPHRINE 100MCG/ML 5ML SYR ONE (16:39)
[2017-10-07] MEDS ORDERED: EpHEDrine SULFATE 50MG/5ML SYR ONE (16:39)
[2017-10-07] MEDS ORDERED: ETOMIDATE 2 MG/ML 20 ML VIAL IV ONE (16:39)
[2017-10-07] MEDS ORDERED: HYDROCORTISONE SOD SUCCINATE 100 MG/2 ML VIAL ONE (16:39)
[2017-10-07] MEDS ORDERED: PHENYLEPHRINE HCL INJ 10 MG/ML VIAL ONE (16:39)
[2017-10-07] MEDS ORDERED: MAGNESIUM HYDROXIDE SUSP 30 ML UDC PO PRN (17:15)
[2017-10-07] MEDS ORDERED: WARFARIN SOD 5 MG TAB PO SCH (17:30)
--- NOTE | 2017-10-07 17:44 | [facility] Operative Report ---
Operative Report Operative Date Oct 07, 2017. Pre-Operative Diagnosis Left shoulder hematoma Post-Operative Diagnosis Left shoulder hematoma Procedure(s) Performed Left Shoulder Evacuation of Hematoma Surgeon Dr. Xavier Cobian Lockstitch Waistband Setter Surgeon(s) Garrett Westbrook PA-C Estimated Blood Loss 50ml Findings As above Specimens None per surgeon Drains 2 Hemovac Anesthesia Type General Complication(s) none Disposition Recovery Room / PACU Indications Patient is a 77-year-old male history of paroxysmal atrial fibrillation and PFO. He underwent a left reverse total shoulder arthroplasty last Abiel. He has been aggressively anticoagulated with aspirin, bridging Lovenox of 100 mg twice daily, warfarin. He had bleeding into the shoulder and developed a fairly significant hematoma and he continued to have serosanguineous drainage. We elected to proceed with evacuation hematoma. Description of Procedure Risks, benefits and alternatives to surgery including, but not limited to, infection DVT, pain, stiffness, need for revision surgery, failure to relieve all symptoms, damage to blood vessels, damage to nerves, risk of anesthesia were discussed with the patient and they wished to proceed. The patient was identified. Laterality was confirmed and marked. The patient received a preoperative antibiotic as well as an interscalene block. They were transferred to the operating room and placed in the supine position and induced into general endotracheal anesthesia per the anesthesia staff. The patient was then safely transferred to a slight beachchair position. All pressure points were well padded. The shoulder was prepped and draped in the usual sterile manner with Betadine. I reopened the surgical incision and removed his francisco. The Ethibond sutures from his deltopectoral repair appear to have torn through the pectoral tissue. He had a significant amount of hematoma in the subcutaneous tissue that was removed bluntly with my fingers as well as with a curette. I then irrigated the region with Pulsavac. I then removed the previous Ethibond sutures and entered the deep space. A large amount of hematoma was encountered in this area. This was debrided again bluntly with fingers and a curette and rongeur. We made a thorough inspection to ensure that there was not any bleeders. He had continued general ooze main from his soft tissues. I used Bovie electrocautery to achieve hemostasis where able to but in numerous places where I would coagulate with the Bovie he would simply have light ooze coming from the tissues. We held pressure in other areas. I was able to get the wound relatively dry but he still had some minor venous ooze from some tissues. There is no discrete bleeders could be identified. There was a bridging branch to the cephalic vein that we had cauterized previously and I reinforced this with some silk ties. The wound was again thoroughly irrigated with pulse lavage and bacitracin fluid. 2 deep drains were placed one was exiting distally along the incision the other exited medially. The deltopectoral interval was closed with interrupted #1 Ethibond suture. The subcutaneous tissue was closed with interrupted 2-0 Vicryl suture. The skin was closed with francisco. A Chrissy wound VAC was placed. A sling was placed. All needle and sponge counts were correct at the end of the procedure. The patient was transferred to the PACU in stable condition without apparent complication. The PA-C was necessary for assistance with procedure for assistance in positioning, prepping, draping, retraction and closure. I attest to the content of the Intraoperative Record and any orders documented therein. Any exceptions are noted below.
[2017-10-07] MEDS: FENTANYL CITRATE INJ 50 MCG/1 ML 2 ML VIAL IV PRN ×3 (17:52→18:06)
[2017-10-07] MEDS ORDERED: WARFARIN SOD 5 MG TAB PO ONE (18:00)
[2017-10-07 18:15] LABS: HEMATOCRIT 27.3 % (42-52); HEMOGLOBIN 8.9 g/dL (14.0-18.0)
--- NOTE | 2017-10-07 18:22 | Anesthesiology Progress Note ---
Anesthesia Post Op Note Date & Time Oct 07, 2017 at 18:22 Vital Signs Pain Intensity: 3 Vital Signs Past 12 Hours Date Time Temp Pulse Resp B/P (MAP) Pulse Ox O2 Delivery O2 Flow Rate FiO2 10/07/17 18:15 36.5 74 16 123/64 99 Nasal Cannula 3 10/07/17 18:05 74 16 140/69 99 Nasal Cannula 3 10/07/17 17:55 76 16 137/83 99 Oxymask 7 10/07/17 17:45 77 16 136/78 99 Oxymask 7 10/07/17 17:35 36.5 67 16 126/87 99 Oxymask 7 Arterial Line 10/07/17 15:00 37.3 74 18 121/61 93 10/07/17 14:43 37.2 79 18 110/58 95 10/07/17 09:49 76 89 10/07/17 07:40 Room Air 10/07/17 07:08 36.6 69 18 97/60 (72) 94 Notes Mental Status: alert / awake / arousable, participated in evaluation Pt Amnestic to Procedure: Yes Nausea / Vomiting: adequately controlled Pain: adequately controlled Airway Patency, RR, SpO2: stable & adequate BP & HR: stable & adequate Hydration State: stable & adequate Anesthetic Complications: no major complications apparent
[2017-10-07] MEDS: MoRPHine SULFATE 2 MG/ML CARP IV PRN (20:50)
[2017-10-07] MEDS: SENNA 8.6 MG TAB PO SCH (21:07)
[2017-10-07] MEDS: ASPIRIN 81 MG ECTAB PO SCH ×2 (21:07→21:29)
[2017-10-07] MEDS: ROSUVASTATIN CALCIUM 10 MG TAB PO SCH ×2 (21:07→21:29)
[2017-10-07] MEDS: LATANOPROST 0.005% OP SOLN 2.5 ML BTL OP SCH (21:08)
[2017-10-07] MEDS: ALLOPURINOL 300 MG TAB PO SCH (21:08)
[2017-10-08] VITALS (8 sets, daily range): BP systolic 83–114; BP diastolic 56–67; PULSE 72–85; TEMP 36.4–37; O2SAT 92–97
[2017-10-08] MEDS: CEFAZOLIN IV 2,000 MG in SYRINGE 0 ML IV SCH ×2 (00:14→09:30)
[2017-10-08] MEDS: D5W AND 1/2NSS + 20MEQ KCL 1,000 ML IV SCH ×3 (00:15→18:41)
[2017-10-08] MEDS: MoRPHine SULFATE 2 MG/ML CARP IV PRN (02:00)
[2017-10-08] MEDS: ACETAMINOPHEN 500 MG TAB PO SCH ×3 (05:34→21:47)
[2017-10-08] MEDS: OXYCODONE HCL IR 5 MG TAB (IMMEDIATE RELEASE) PO PRN ×5 (05:36→23:29)
[2017-10-08 06:32] LABS: HEMATOCRIT 28.4 % (42-52); HEMOGLOBIN 8.9 g/dL (14.0-18.0); MEAN CELL VOLUME 95.6 fL (80-100); MEAN CORPUSCULAR HGB CONC 31.3 g/dl (32-36); MEAN PLATELET VOLUME 8.7 fL (7.4-10.4); NUCLEATED RED BLOOD CELL ABS 0.28 K/uL (0-0); PLATELET COUNT 215 K/uL (130-400); RED CELL DISTRIBUTION WIDTH CV 20.7 % (11.5-14.5); RED CELL DISTRIBUTION WIDTH SD 63.7 fL (36.4-46.3); WHITE BLOOD COUNT 13.71 K/uL (4.8-10.8)
[2017-10-08 06:37] LABS: INR 1.2 (0.9-1.1)
[2017-10-08 07:08] LABS: CALCIUM 8.5 mg/dl (8.5-10.1); CREATININE 1.21 mg/dl (0.60-1.40); POTASSIUM 4.6 mmol/L (3.5-5.1)
--- NOTE | 2017-10-08 08:09 | Anesthesiology Progress Note ---
Anesthesia Post Op Note Date & Time Oct 08, 2017 at 08:09 Vital Signs Pain Intensity: 6.0 Vital Signs Past 12 Hours Date Time Temp Pulse Resp B/P (MAP) Pulse Ox O2 Delivery O2 Flow Rate FiO2 10/08/17 07:34 36.4 74 17 109/62 (78) 96 Room Air 10/08/17 03:03 36.4 77 16 114/65 (81) 97 Nasal Cannula 3.0 10/08/17 00:12 Nasal Cannula 3.0 10/07/17 22:54 36.6 82 16 123/70 (87) 94 Nasal Cannula 3.0 10/07/17 21:40 36.5 80 16 128/83 (98) 98 Nasal Cannula 3.0 10/07/17 21:04 36.5 83 15 123/80 (94) 98 Nasal Cannula 3.0 Notes Mental Status: alert / awake / arousable, participated in evaluation Pt Amnestic to Procedure: Yes Nausea / Vomiting: adequately controlled Pain: adequately controlled Airway Patency, RR, SpO2: stable & adequate BP & HR: stable & adequate Hydration State: stable & adequate Anesthetic Complications: no major complications apparent
--- NOTE | 2017-10-08 09:08 | Orthopedic Progress Note ---
Orthopedic Progress Note Date of Service Oct 08, 2017. Subjective Post OP Day: 1 Reports: feeling well, Denies: complaints Additional Notes: Pt sitting up in chair eating breakfast this AM. No complaints. Pain controlled presently. Objective N/V intact, capillary refill less than 2 sec., dressing C/D/I (Prevena), A&O x3 , hemovac drainage (600ml latest shift) Prevena dressing intact. Scant amount of bloody drainage noted in drain tube. Good ROM of fingers/wrist/elbow. Denies decreased sensation presently. Sling in place. Date Time Temp Pulse Resp B/P (MAP) Pulse Ox O2 Delivery O2 Flow Rate FiO2 10/08/17 07:34 36.4 74 17 109/62 (78) 96 Room Air 10/08/17 03:03 36.4 77 16 114/65 (81) 97 Nasal Cannula 3.0 10/08/17 00:12 Nasal Cannula 3.0 10/07/17 22:54 36.6 82 16 123/70 (87) 94 Nasal Cannula 3.0 10/07/17 21:40 36.5 80 16 128/83 (98) 98 Nasal Cannula 3.0 10/07/17 21:04 36.5 83 15 123/80 (94) 98 Nasal Cannula 3.0 10/07/17 19:41 36.5 71 16 135/81 (99) 98 Nasal Cannula 3.0 10/07/17 19:09 36.5 80 15 156/73 (100) 98 Nasal Cannula 3.0 10/07/17 19:02 97 Nasal Cannula 3.0 10/07/17 19:00 97 Nasal Cannula 3.0 10/07/17 18:42 36.9 80 15 149/73 (98) 97 Nasal Cannula 3.0 10/07/17 18:15 36.5 74 16 123/64 99 Nasal Cannula 3 10/07/17 18:05 74 16 140/69 99 Nasal Cannula 3 10/07/17 17:55 76 16 137/83 99 Oxymask 7 10/07/17 17:45 77 16 136/78 99 Oxymask 7 10/07/17 17:35 36.5 67 16 126/87 99 Oxymask 7 Arterial Line 10/07/17 15:00 37.3 74 18 121/61 93 10/07/17 14:43 37.2 79 18 110/58 95 10/07/17 09:49 76 89 Laboratory Results 24 Hours: Test 10/07/17 18:03 10/08/17 05:59 Hematocrit 27.3 % 28.4 % Hemoglobin 8.9 g/dL 8.9 g/dL Prothromb Time International Ratio 1.2 Prothrombin Time 12.1 SECONDS Assessment & Plan Assessment: Postop day1 s/p I&D left shoulder wound; POD 4 status post left reverse total shoulder arthroplasty post-op anemia Hgb 8.9 after a total of 5 units of PRBCs will look into possible [facility] Plan: [facility] for acute rehab if accepted. Patient is amenable to this. Warfarin for DVT prophylaxis Follow HV drainage and H/H for now. Restart Coumadin.
[2017-10-08] MEDS: SOTALOL HCL 80 MG TAB PO SCH ×2 (09:23→21:52)
[2017-10-08] MEDS: PANTOprazole SOD 40 MG TAB PO SCH (09:24)
[2017-10-08] MEDS: TAMSULOSIN HCL 0.4 MG CAP PO SCH (09:24)
[2017-10-08] MEDS: DOCUSATE SODIUM 100 MG CAP PO SCH ×2 (09:24→21:47)
[2017-10-08] MEDS: POTASSIUM CITRATE 10 MEQ TAB PO SCH ×2 (09:24→21:48)
[2017-10-08] MEDS: FERROUS GLUCONATE 324 MG TAB PO SCH ×3 (09:25→18:40)
[2017-10-08] MEDS: MULTIVITAMIN TAB PO SCH (09:25)
[2017-10-08] MEDS: PREGABALIN 100 MG CAP PO SCH (14:31)
--- NOTE | 2017-10-08 15:50 | Progress Note ---
Internal Med Progress Note Date of Service: Oct 08, 2017. Provider Documentation: SUBJECTIVE: Patient seen and examined at bedside. 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 of CAD s/p CABG, prediabetes, chronic pain syndrome with: -Left shoulder rotator cuff arthropathy and s/p Left reverse total shoulder arthroplasty on 10/01/17 and has had Acute Blood Loss Anemia leading to Volume Depletion and Acute Kidney Injury (AT resolved), subsequently needed 3 units of PRBC (History of CAD with CABG and medication include aspirin, statin, b-ketan has been on Coumadin for Paroxysmal A. Fib and history of PFO) -had transitioned with Lovenox and coumadin to therapeutic INR on but needed vitamin K and INR reversal for left shoulder evacuation of hematoma -Left Shoulder Evacuation of Hematoma on 10/07/17, and s/p 2 more units of PRBC -Hypocalcemia on this admission from multiple blood transfusions, calcium level 8.5 today is adequate, monitor labs -history of Gouty Arthropathy, continue Prednisone 5mg daily -pain management and wound care as per orthopedics DVT ppx: SCD Main Recommendation: Given multiple blood transfusions and post-op hematoma, the risks of the anticoagulation appears to outweigh the benefits at this time. Anticoagulation for the history of atrial fibrillation should be held at this time Vital Signs: Date Time Temp Pulse Resp B/P (MAP) Pulse Ox O2 Delivery O2 Flow Rate FiO2 10/08/17 15:15 36.8 79 18 109/56 (73) 93 Room Air 10/08/17 12:00 36.7 72 18 102/64 (77) 94 Room Air 10/08/17 07:34 36.4 74 17 109/62 (78) 96 Room Air 10/08/17 07:30 Nasal Cannula 3.0 10/08/17 03:03 36.4 77 16 114/65 (81) 97 Nasal Cannula 3.0 10/08/17 00:12 Nasal Cannula 3.0 10/07/17 22:54 36.6 82 16 123/70 (87) 94 Nasal Cannula 3.0 10/07/17 21:40 36.5 80 16 128/83 (98) 98 Nasal Cannula 3.0 10/07/17 21:04 36.5 83 15 123/80 (94) 98 Nasal Cannula 3.0 10/07/17 19:41 36.5 71 16 135/81 (99) 98 Nasal Cannula 3.0 10/07/17 19:09 36.5 80 15 156/73 (100) 98 Nasal Cannula 3.0 10/07/17 19:02 97 Nasal Cannula 3.0 10/07/17 19:00 97 Nasal Cannula 3.0 10/07/17 18:42 36.9 80 15 149/73 (98) 97 Nasal Cannula 3.0 10/07/17 18:15 36.5 74 16 123/64 99 Nasal Cannula 3 10/07/17 18:05 74 16 140/69 99 Nasal Cannula 3 10/07/17 17:55 76 16 137/83 99 Oxymask 7 10/07/17 17:45 77 16 136/78 99 Oxymask 7 10/07/17 17:35 36.5 67 16 126/87 99 Oxymask 7 Arterial Line Lab Results: Results Past 24 Hours Test 10/07/17 18:03 10/08/17 05:59 Range/Units Hemoglobin 8.9 8.9 14.0-18.0 g/dL Hematocrit 27.3 28.4 42-52 % White Blood Count 13.71 4.8-10.8 K/uL Red Blood Count 2.97 4.7-6.1 M/uL Mean Corpuscular Volume 95.6 80-100 fL Mean Corpuscular Hemoglobin 30.0 25-34 pg Mean Corpuscular Hemoglobin Concent 31.3 32-36 g/dl RDW Standard Deviation 63.7 36.4-46.3 fL RDW Coefficient of Variation 20.7 11.5-14.5 % Platelet Count 215 130-400 K/uL Mean Platelet Volume 8.7 7.4-10.4 fL Nucleated RBC Absolute Count (auto) 0.28 0-0 K/uL Nucleated Red Blood Cells % 2.1 % Prothrombin Time 12.1 9.0-12.0 SECONDS Prothromb Time International Ratio 1.2 0.9-1.1 Sodium Level 138 136-145 mmol/L Potassium Level 4.6 3.5-5.1 mmol/L Chloride Level 108 98-107 mmol/L Carbon Dioxide Level 25 21-32 mmol/L Anion Gap 6.0 3-11 mmol/L Blood Urea Nitrogen 14 7-18 mg/dl Creatinine 1.21 0.60-1.40 mg/dl Est Creatinine Clear Calc Drug Dose 63.5 ml/min Estimated GFR () 66.5 Estimated GFR (Non- 57.4 BUN/Creatinine Ratio 11.2 10-20 Random Glucose 140 70-99 mg/dl Calcium Level 8.5 8.5-10.1 mg/dl
[2017-10-08] MEDS: WARFARIN SOD 2.5 MG TAB PO SCH (16:38)
[2017-10-08] MEDS: SENNA 8.6 MG TAB PO SCH (21:48)
[2017-10-08] MEDS: ALLOPURINOL 300 MG TAB PO SCH (21:48)
[2017-10-08] MEDS: ROSUVASTATIN CALCIUM 10 MG TAB PO SCH (21:48)
[2017-10-08] MEDS: ASPIRIN 81 MG ECTAB PO SCH (21:49)
[2017-10-08] MEDS: LATANOPROST 0.005% OP SOLN 2.5 ML BTL OP SCH (21:49)
[2017-10-09] MEDS: D5W AND 1/2NSS + 20MEQ KCL 1,000 ML IV SCH (03:59)
[2017-10-09] MEDS: ACETAMINOPHEN 500 MG TAB PO SCH ×3 (06:04→21:19)
[2017-10-09 06:58] VITALS: BP 94/61; PULSE 77; TEMP 36.7; O2SAT 93
[2017-10-09 07:09] LABS: HEMATOCRIT 25.4 % (42-52); HEMOGLOBIN 7.9 g/dL (14.0-18.0); MEAN CELL VOLUME 98.1 fL (80-100); MEAN CORPUSCULAR HEMOGLOBIN 30.5 pg (25-34); MEAN CORPUSCULAR HGB CONC 31.1 g/dl (32-36); MEAN PLATELET VOLUME 8.4 fL (7.4-10.4); NUCLEATED RED BLOOD CELL ABS 0.16 K/uL (0-0); PLATELET COUNT 183 K/uL (130-400); RED CELL DISTRIBUTION WIDTH CV 22.2 % (11.5-14.5); RED CELL DISTRIBUTION WIDTH SD 67.5 fL (36.4-46.3); WHITE BLOOD COUNT 10.01 K/uL (4.8-10.8)
[2017-10-09 07:44] LABS: ALBUMIN 2.6 gm/dl (3.4-5.0); CALCIUM 8.3 mg/dl (8.5-10.1); CREATININE 1.27 mg/dl (0.60-1.40); POTASSIUM 4.4 mmol/L (3.5-5.1)
[2017-10-09 07:47] LABS: TOTAL PROTEIN 5.5 gm/dl (6.4-8.2)
[2017-10-09] MEDS: OXYCODONE HCL IR 5 MG TAB (IMMEDIATE RELEASE) PO PRN ×3 (09:39→18:06)
[2017-10-09] MEDS: DOCUSATE SODIUM 100 MG CAP PO SCH ×2 (09:40→21:16)
[2017-10-09] MEDS: POTASSIUM CITRATE 10 MEQ TAB PO SCH (09:40)
[2017-10-09] MEDS: PANTOprazole SOD 40 MG TAB PO SCH (09:40)
[2017-10-09] MEDS: FERROUS GLUCONATE 324 MG TAB PO SCH ×3 (09:40→18:05)
[2017-10-09] MEDS: MULTIVITAMIN TAB PO SCH (09:41)
[2017-10-09] MEDS: TAMSULOSIN HCL 0.4 MG CAP PO SCH (09:41)
[2017-10-09 09:43] VITALS: BP 110/65; PULSE 85
[2017-10-09] MEDS: SOTALOL HCL 80 MG TAB PO SCH ×2 (09:43→21:18)
--- NOTE | 2017-10-09 10:48 | ORTHOPEDIC PROGRESS NOTE ---
DATE: 10/09/2017 SUBJECTIVE: The patient is a 77-year-old white male who underwent left reverse total shoulder arthroplasty by Dr. Cobian initially on 10/01/2017. Patient had issues with continued wound drainage and he was taken back to the operating room on 10/07/2017 for irrigation, debridement and left shoulder hematoma evacuation. Today, is postop day 2 and nursing contacted me about little bit of excess drainage coming from around the Prevena dressing and the drains itself. His Hemovac had essentially stopped putting out any drainage and he was not having any overt complaints. Currently, when I came into the room, he was sitting in his chair and was feeling well and had no complaints other than some mild pain in the left shoulder. OBJECTIVE: Examining the patient's shoulder dressing, he has a Prevena external wound VAC on and has a Hemovac drain that is present. Just looking at the Hemovac drains, he has some serous drainage that is oozing from the drain sites themselves around the tubing and is making its way out around the Tegaderm dressing with a Prevena causing to leak out the bottom. He also has some saturated areas of his Prevena sponge dressing noted. He has had continued ecchymosis, which has not really changed over the shoulder and going down the arm with swelling going down the arm and the hand. He has good range of motion of his left hand and fingers and denies much in the way of decreased sensation. He has no pain in the left elbow at this time and has good range of motion at this time as well. With the draining of the wounds of the Hemovac sites, etc, the Prevena was then removed and the drains were removed as well. The wound sites were cleansed with sterile saline wipes and a new dressing was applied bulky 4 x 3 dressings were applied to the drain sites and 4 x 4 dressing was applied to the wound site. The wound itself was looking benign and had no erythema, etc. He did have just a mild amount of bloody ooze from the proximal portion of the incision and after removing the drain tubing from the sites, he had mild serous bloody drainage from the top Hemovac site and [id number] drainage from the lower Hemovac site. Pressure was applied to both of these, which helped to slow this down. At that point, bulky dressings were applied to these sites and then Tegaderm was placed over whole of the sites. An Navjot wrap was then wrapped around his arm from just about bicep level to the axilla to help apply some pressure to the lower Hemovac site. The patient then had a sling, then readjusted and he tolerated the dressing change well. ASSESSMENT: Postop day #8 for original left reverse TSA. Postop day #2 for evacuation of hematoma, left shoulder. SECONDARY DIAGNOSES: Coronary artery disease with coronary artery bypass grafting in the past, paroxysmal atrial fibrillation on chronic Coumadin, postoperative anemia, a history of gout, history of prediabetes. PLAN: At this point, continue to follow regular dressing changes and physical therapy for this gentleman. Hemoglobin was 7.9 this morning and plans will be to transfuse if symptomatic. Currently, the patient has been denied for [facility] and authorization has been placed for [facility]. When the patient has remained medically stable and orthopedically stable, we will plan to transfer to [facility]. EVY
[2017-10-09] MEDS ORDERED: FUROSEMIDE INJ 20 MG in SYRINGE 0 ML IV ONE (11:30)
--- NOTE | 2017-10-09 11:33 | Progress Note ---
Internal Med Progress Note Date of Service: Oct 09, 2017. Provider Documentation: SUBJECTIVE: Patient seen and examined at bedside. The left shoulder drain has been removed. His left arm still in the sling. There is more swelling of the left hand. Nurse reports that patient did not have IV site on left arm. The right arm IV access is not gone and needs to be replaced. Patient denies pain or shortness of breath. OBJECTIVE: General Appearance: no apparent distress Respiratory/Chest: lungs clear, normal breath sounds, no respiratory distress, no accessory muscle use Cardiovascular: regular rate, rhythm, no edema, no murmur Abdomen: soft, nontender, + bowel sounds Neurologic/Psychiatric: alert, normal mood/affect Extremities: left shoulder with sling only. 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 of CAD s/p CABG, prediabetes, chronic pain syndrome with: -Left shoulder rotator cuff arthropathy and s/p Left reverse total shoulder arthroplasty on 10/01/17 and has had Acute Blood Loss Anemia leading to Volume Depletion and Acute Kidney Injury (TA resolved), subsequently needed 3 units of PRBC (History of CAD with CABG and medication include aspirin, statin, b-ketan has been on Coumadin for Paroxysmal A. Fib and history of PFO) -had transitioned with Lovenox and coumadin to therapeutic INR on but needed vitamin K and INR reversal for left shoulder evacuation of hematoma -Left Shoulder Evacuation of Hematoma on 10/07/17, and s/p 2 more units of PRBC . Hgb 8.9 on 10/07/17 to 10/08/17. Is now 7.9 on 10/09/17. decrease in hemoglobin likely from blood loss via the left shoulder drain that has been removed on 10/09 - orthopedics ordering coumadin on 10/09/17, will defer to orthopedics on the warfarin risk assessment and re-bleeding risk -Hypocalcemia on this admission from multiple blood transfusions, calcium level 8.3 which is adequate as albumin 2.6 when adjusted for corrected calcium -Low albumin can be from low oral intake but more likely because of multiple blood transfusions, continue to observe -previously on this hospital stay, patient's blood pressure has been low but asymptomatic and so oral Lasix was held. patient has left hand swelling and with multiple blood transfusions is at risk of fluid overload. 20 mg IV Lasix ordered on . Resume oral Lasix starting 10/10/17. IV fluids stopped for now -history of Gouty Arthropathy, continue Prednisone 5mg daily -pain management and wound care as per orthopedics DVT ppx: SCD Vital Signs: Date Time Temp Pulse Resp B/P (MAP) Pulse Ox O2 Delivery O2 Flow Rate FiO2 10/09/17 09:43 85 110/65 (80) 10/09/17 06:58 36.7 77 16 94/61 (72) 93 Room Air 10/09/17 06:50 Room Air 10/08/17 23:30 Room Air 10/08/17 23:30 36.6 78 18 114/67 (83) 92 Room Air 10/08/17 21:50 79 101/64 (76) 10/08/17 20:44 85 99/60 (73) 10/08/17 20:37 37.0 84 19 83/56 (65) 92 Room Air 10/08/17 16:45 Room Air 10/08/17 15:15 36.8 79 18 109/56 (73) 93 Room Air 10/08/17 12:00 36.7 72 18 102/64 (77) 94 Room Air Lab Results: Results Past 24 Hours Test 10/09/17 06:43 Range/Units White Blood Count 10.01 4.8-10.8 K/uL Red Blood Count 2.59 4.7-6.1 M/uL Hemoglobin 7.9 14.0-18.0 g/dL Hematocrit 25.4 42-52 % Mean Corpuscular Volume 98.1 80-100 fL Mean Corpuscular Hemoglobin 30.5 25-34 pg Mean Corpuscular Hemoglobin Concent 31.1 32-36 g/dl RDW Standard Deviation 67.5 36.4-46.3 fL RDW Coefficient of Variation 22.2 11.5-14.5 % Platelet Count 183 130-400 K/uL Mean Platelet Volume 8.4 7.4-10.4 fL Nucleated RBC Absolute Count (auto) 0.16 0-0 K/uL Nucleated Red Blood Cells % 1.6 % Sodium Level 137 136-145 mmol/L Potassium Level 4.4 3.5-5.1 mmol/L Chloride Level 107 98-107 mmol/L Carbon Dioxide Level 25 21-32 mmol/L Anion Gap 5.0 3-11 mmol/L Blood Urea Nitrogen 14 7-18 mg/dl Creatinine 1.27 0.60-1.40 mg/dl Est Creatinine Clear Calc Drug Dose 60.5 ml/min Estimated GFR () 62.7 Estimated GFR (Non- 54.1 BUN/Creatinine Ratio 11.1 10-20 Random Glucose 106 70-99 mg/dl Calcium Level 8.3 8.5-10.1 mg/dl Total Bilirubin 1.9 0.2-1 mg/dl Aspartate Amino Transf (AST/SGOT) 31 15-37 U/L Alanine Aminotransferase (ALT/SGPT) 11 12-78 U/L Alkaline Phosphatase 49 45-117 U/L Total Protein 5.5 6.4-8.2 gm/dl Albumin 2.6 3.4-5.0 gm/dl Globulin 2.9 2.5-4.0 gm/dl Albumin/Globulin Ratio 0.9 0.9-2
[2017-10-09] MEDS: PREGABALIN 100 MG CAP PO SCH (14:00)
[2017-10-09 15:16] VITALS: BP 103/62; PULSE 75; TEMP 36.9; O2SAT 94
[2017-10-09] MEDS: WARFARIN SOD 2.5 MG TAB PO SCH (15:54)
[2017-10-09 21:15] VITALS: BP 116/71; PULSE 74
[2017-10-09] MEDS: ALLOPURINOL 300 MG TAB PO SCH (21:16)
[2017-10-09] MEDS: LATANOPROST 0.005% OP SOLN 2.5 ML BTL OP SCH (21:16)
[2017-10-09] MEDS: ASPIRIN 81 MG ECTAB PO SCH (21:18)
[2017-10-09] MEDS: ROSUVASTATIN CALCIUM 10 MG TAB PO SCH (21:18)
[2017-10-09] MEDS: SENNA 8.6 MG TAB PO SCH (21:18)
[2017-10-09 22:55] VITALS: BP 101/57; PULSE 81; TEMP 36.7; O2SAT 94
[2017-10-10] MEDS: OXYCODONE HCL IR 5 MG TAB (IMMEDIATE RELEASE) PO PRN ×3 (04:25→21:30)
[2017-10-10] MEDS: ACETAMINOPHEN 500 MG TAB PO SCH ×3 (05:22→21:28)
[2017-10-10 05:43] LABS: HEMATOCRIT 29.2 % (42-52); MEAN CELL VOLUME 100.3 fL (80-100); MEAN CORPUSCULAR HEMOGLOBIN 30.9 pg (25-34); MEAN CORPUSCULAR HGB CONC 30.8 g/dl (32-36); MEAN PLATELET VOLUME 8.5 fL (7.4-10.4); PLATELET COUNT 211 K/uL (130-400); RED CELL DISTRIBUTION WIDTH CV 23.2 % (11.5-14.5); RED CELL DISTRIBUTION WIDTH SD 70.8 fL (36.4-46.3); WHITE BLOOD COUNT 10.39 K/uL (4.8-10.8)
[2017-10-10 06:20] LABS: CREATININE 1.29 mg/dl (0.60-1.40)
[2017-10-10 06:34] VITALS: BP 103/64; PULSE 75; TEMP 36.8; O2SAT 92
--- NOTE | 2017-10-10 07:50 | Orthopedic Progress Note ---
Orthopedic Progress Note Date of Service Oct 10, 2017. Subjective Reports: feeling well, Denies: complaints Objective N/V intact, A&O x3 Pt sitting in chair at bedside. Feeling well this AM. Dressing intact. Small area over the proximal incision dressing that appears saturated but did not saturate through the whole dressing. The rest of the dressing appears benign. Continues with hand swelling. Moving hand and fingers well. Good ROM of elbow. Date Time Temp Pulse Resp B/P (MAP) Pulse Ox O2 Delivery O2 Flow Rate FiO2 10/10/17 06:34 36.8 75 18 103/64 (77) 92 Room Air 10/09/17 23:45 Room Air 10/09/17 22:55 36.7 81 18 101/57 (72) 94 Room Air 10/09/17 21:15 74 116/71 (86) 10/09/17 15:55 Room Air 10/09/17 15:16 36.9 75 16 103/62 (76) 94 Room Air 10/09/17 09:43 85 110/65 (80) Laboratory Results 24 Hours: Test 10/10/17 05:29 Hematocrit 29.2 % Hemoglobin 9.0 g/dL Assessment & Plan Assessment: Postop day3 s/p I&D/ Evac Hematoma left shoulder wound; POD 9 status post left reverse total shoulder arthroplasty post-op anemia; Hgb 9 today Plan for rehab vs SNF. Orthopedically ok for transfer when ok with Med service Plan: [facility] for acute rehab if accepted. Patient is amenable to this. Warfarin for DVT prophylaxis Follow HV drainage and H/H for now. Restart Coumadin. Inhouse Planning Pain Management: Morphine, Oxy IR DVT Prophylaxis: TEDs, SCDs, Coumadin
[2017-10-10] MEDS: SOTALOL HCL 80 MG TAB PO SCH ×2 (09:40→21:27)
[2017-10-10] MEDS: PANTOprazole SOD 40 MG TAB PO SCH (09:41)
[2017-10-10] MEDS: POTASSIUM CITRATE 10 MEQ TAB PO SCH (09:41)
[2017-10-10] MEDS: TAMSULOSIN HCL 0.4 MG CAP PO SCH (09:41)
[2017-10-10] MEDS: FUROSEMIDE 20 MG TAB PO SCH (09:42)
[2017-10-10] MEDS: FERROUS GLUCONATE 324 MG TAB PO SCH ×3 (09:42→18:30)
[2017-10-10] MEDS: MULTIVITAMIN TAB PO SCH (09:43)
[2017-10-10] MEDS: DOCUSATE SODIUM 100 MG CAP PO SCH ×2 (09:43→21:00)
--- NOTE | 2017-10-10 13:02 | Consultant Recommendations ---
Sex Therapist Recommendations Date of Service Oct 10, 2017. Sex Therapist Recommendations Medical Consultation follow up note SUBJECTIVE: Patient seen and examined at bedside. Denies pain. Still has swelling of the left hand. OBJECTIVE: General Appearance: no apparent distress Respiratory/Chest: lungs clear, normal breath sounds, no respiratory distress, no accessory muscle use Cardiovascular: regular rate, rhythm, no edema, no murmur Abdomen: soft, nontender, + bowel sounds Neurologic/Psychiatric: alert, normal mood/affect Extremities: left shoulder with sling only. 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 of CAD s/p CABG, prediabetes, chronic pain syndrome with: -Left shoulder rotator cuff arthropathy and s/p Left reverse total shoulder arthroplasty on 10/01/17 and has had Acute Blood Loss Anemia leading to Volume Depletion and Acute Kidney Injury (TA resolved), subsequently needed 3 units of PRBC (History of CAD with CABG and medication include aspirin, statin, b-ketan has been on Coumadin for Paroxysmal A. Fib and history of PFO) -had transitioned with Lovenox and coumadin to therapeutic INR on but needed vitamin K and INR reversal for left shoulder evacuation of hematoma -Left Shoulder Evacuation of Hematoma on 10/07/17, and s/p 2 more units of PRBC . Hgb 8.9 on 10/07/17 to 10/08/17. Is now 7.9 on 10/09/17 but follow up CBC on 10/10 without any intervention as Hgb of 9 so Hgb is stable and previous lab reading may be lab error -orthopedics restarted Coumadin on 10/09/17, at this point given the hematoma when patient had been on full dose anticoagulation with Lovenox, patient can slowly obtain therapeutic INR without any bridging for the treatment of atrial fibrillation -Hypocalcemia on this admission from multiple blood transfusions, calcium level 8.3 which is adequate as albumin 2.6 when adjusted for corrected calcium -Low albumin can be from low oral intake but more likely because of multiple blood transfusions, continue to observe -previously on this hospital stay, patient's blood pressure has been low but asymptomatic and so oral Lasix was held. patient has left hand swelling and with multiple blood transfusions is at risk of fluid overload. 20 mg IV Lasix was ordered on . Resume oral Lasix starting 10/10/17. Continue Lasix -history of Gouty Arthropathy, continue Prednisone 5mg daily -pain management and wound care as per orthopedics [facility] as per orthopedics, orthopedics is the patient's primary hospital team and will need to coordinate discharge with supportive employment case manager and discharge prescriptions for when patient goes to the selected facility when discharged to facility, patient will need follow up INR lab checks while on coumadin to monitor for therapeutic INR between 2 to 3
[2017-10-10] MEDS: PREGABALIN 100 MG CAP PO SCH (13:36)
[2017-10-10] MEDS: WARFARIN SOD 2.5 MG TAB PO SCH (15:26)
[2017-10-10 16:41] VITALS: BP 101/61; PULSE 77; TEMP 36.7; O2SAT 92
[2017-10-10] MEDS: SENNA 8.6 MG TAB PO SCH (21:00)
[2017-10-10 21:15] VITALS: BP 122/73; PULSE 80
[2017-10-10] MEDS: LATANOPROST 0.005% OP SOLN 2.5 ML BTL OP SCH (21:27)
[2017-10-10] MEDS: ALLOPURINOL 300 MG TAB PO SCH (21:28)
[2017-10-10] MEDS: ROSUVASTATIN CALCIUM 10 MG TAB PO SCH (21:28)
[2017-10-10] MEDS: ASPIRIN 81 MG ECTAB PO SCH (21:28)
[2017-10-10 23:07] VITALS: BP 90/55; PULSE 67; TEMP 37.2; O2SAT 93
[2017-10-11 00:04] VITALS: BP 112/62; PULSE 70; O2SAT 95
[2017-10-11] MEDS: OXYCODONE HCL IR 5 MG TAB (IMMEDIATE RELEASE) PO PRN ×2 (02:01→12:37)
[2017-10-11] MEDS: ACETAMINOPHEN 500 MG TAB PO SCH (05:29)
[2017-10-11 05:43] LABS: HEMATOCRIT 26.9 % (42-52); HEMOGLOBIN 8.2 g/dL (14.0-18.0); MEAN CELL VOLUME 100.7 fL (80-100); MEAN CORPUSCULAR HEMOGLOBIN 30.7 pg (25-34); MEAN CORPUSCULAR HGB CONC 30.5 g/dl (32-36); MEAN PLATELET VOLUME 8.5 fL (7.4-10.4); NUCLEATED RED BLOOD CELL ABS 0.06 K/uL (0-0); PLATELET COUNT 207 K/uL (130-400); RED CELL DISTRIBUTION WIDTH CV 24.1 % (11.5-14.5); RED CELL DISTRIBUTION WIDTH SD 79.1 fL (36.4-46.3); WHITE BLOOD COUNT 9.18 K/uL (4.8-10.8)
[2017-10-11 06:16] LABS: CREATININE 1.24 mg/dl (0.60-1.40)
[2017-10-11 07:13] VITALS: BP 103/64; PULSE 71; TEMP 36.9; O2SAT 95
[2017-10-11] MEDS ORDERED: RXC5 PO (07:53)
[2017-10-11] MEDS ORDERED: ACET-24 PO (07:53)
[2017-10-11] MEDS ORDERED: FRRG PO (07:53)
--- NOTE | 2017-10-11 08:01 | Discharge Instructions ---
Discharge Instructions Date of Service Oct 11, 2017. Admission Reason for Admission: Left Shoulder Osteoarthritis Discharge Discharge Diagnosis / Problem: Left Shoulder Djd Discharge Goals Goal(s): Decrease discomfort, Improve function, Increase independence Activity Recommendations Activity Level: Assistance Required Therapies: Physical Therapy (L TSA protocol), Occupational Therapy (ADL's and transfers) . Additional Information Patient informed of condition: Yes Advance Directives: Yes DNR: No Level of Care: Skilled Communicable Disease: No Prognosis: Stable Finn Catheter: No Instructions / Follow-Up Instructions / Follow-Up ACTIVITY RECOMMENDATIONS: SELF CARE INSTRUCTIONS AFTER TOTAL SHOULDER ARTHROPLASTY REVERSE A. You may do daily exercises as taught in physical therapy while in hospital. No lifting with the operative arm. B. You are to wear your sling/immobilizer at all times EXCEPT when performing your daily exercises and for hygiene purposes. C. You may perform dry, daily dressing changes. Please keep your incision covered. You may shower 48 hours after surgery. Do not apply soap or any ointment/ lotions directly over incision. Do not soak incision in bath tub/swimming pool. D. You may use ice as needed to operative shoulder. SPECIAL CARE INSTRUCTIONS: VERY IMPORTANT TO READ AND REVIEW A. There are a few signs you need to watch for after you are home. Call [facility] at [phone] if you experience any of the followin. Increased severe shoulder pain. Some pain is expected especially when you exercise. 2. Increased swelling in you shoulder or arm; pain or swelling in either upper extremity. 3. Any fluid drainage from the incision. 4. Shortness of breath or chest pain. B. Please call [facility] at [phone] if you have any questions or concerns about your operation or recovery. C. Call your physician if: 1. Temperature is greater than 101 degrees (F). 2. Pain is not relieved by prescribed pain medications. 3. Increase drainage or redness from incision. 4. Unanswered questions or concerns. FOLLOW UP VISIT: Please call [facility] at [phone] to schedule a follow up appointment with Dr. Cobian or his PA in 12-14 days from your surgery date. Current Hospital Diet Patient's current hospital diet: Regular Diet Discharge Diet Recommended Diet: Regular Diet Procedures Procedures Performed: Left Shoulder Evacuation of Hematoma Pending Studies Studies pending at discharge: no Physician Orders On Transfer Dressing Changes: daily dressing changes if dressing becomes saturated. if dry , then qod Vital Signs: routine Additional Orders: daily INR draws. Laboratory Results Hemoglobin A1c Test 08/31/17 14:56 Range/Units Estimated Average Glucose 117 mg/dl Hemoglobin A1c 5.7 H 4.5-5.6 % Medical Emergencies . Who to Call and When: Medical Emergencies: If at any time you feel your situation is an emergency, please call 911 immediately. . Non-Emergent Contact Non-Emergency issues call your: Surgeon Call Non-Emergent contact if: temperature is above 101.5, your pain is not controlled, your pain is worsening, wound has increased drainage, wound has increased redness . . "Provider Documentation" section prepared by Genaro Lawrence. . Endoscopic Technician Recommendations Endoscopic Technician Recommendations: Medical Consultation follow up note SUBJECTIVE: Patient seen and examined at bedside. Denies pain. Still has swelling of the left hand. OBJECTIVE: General Appearance: no apparent distress Respiratory/Chest: lungs clear, normal breath sounds, no respiratory distress, no accessory muscle use Cardiovascular: regular rate, rhythm, no edema, no murmur Abdomen: soft, nontender, + bowel sounds Neurologic/Psychiatric: alert, normal mood/affect Extremities: left shoulder with sling only. 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 of CAD s/p CABG, prediabetes, chronic pain syndrome with: -Left shoulder rotator cuff arthropathy and s/p Left reverse total shoulder arthroplasty on 10/01/17 and has had Acute Blood Loss Anemia leading to Volume Depletion and Acute Kidney Injury (TA resolved), subsequently needed 3 units of PRBC (History of CAD with CABG and medication include aspirin, statin, b-ketan has been on Coumadin for Paroxysmal A. Fib and history of PFO) -had transitioned with Lovenox and coumadin to therapeutic INR on but needed vitamin K and INR reversal for left shoulder evacuation of hematoma -Left Shoulder Evacuation of Hematoma on 10/07/17, and s/p 2 more units of PRBC . Hgb 8.9 on 10/07/17 to 10/08/17. Is now 7.9 on 10/09/17 but follow up CBC on 10/10 without any intervention as Hgb of 9 so Hgb is stable and previous lab reading may be lab error -orthopedics restarted Coumadin on 10/09/17, at this point given the hematoma when patient had been on full dose anticoagulation with Lovenox, patient can slowly obtain therapeutic INR without any bridging for the treatment of atrial fibrillation -Hypocalcemia on this admission from multiple blood transfusions, calcium level 8.3 which is adequate as albumin 2.6 when adjusted for corrected calcium -Low albumin can be from low oral intake but more likely because of multiple blood transfusions, continue to observe -previously on this hospital stay, patient's blood pressure has been low but asymptomatic and so oral Lasix was held. patient has left hand swelling and with multiple blood transfusions is at risk of fluid overload. 20 mg IV Lasix was ordered on . Resume oral Lasix starting 10/10/17. Continue Lasix -history of Gouty Arthropathy, continue Prednisone 5mg daily -pain management and wound care as per orthopedics discharge [facility] as per orthopedics, orthopedics is the patient's primary hospital team and will need to coordinate discharge with lead case manager and discharge prescriptions for when patient goes to the selected facility when discharged to facility, patient will need follow up INR lab checks while on coumadin to monitor for therapeutic INR between 2 to 3 Core Measure Problem Core Measures: None [place] Drug Monitoring Program Search Results: patient reviewed within database, see additional documentation Drug Monitoring Findings: Pt receiving monthly Rx for Hydrocodone from [facility] in [place]. Last Rx filled was 09/08/17
[2017-10-11] MEDS: DOCUSATE SODIUM 100 MG CAP PO SCH (08:50)
[2017-10-11] MEDS: TAMSULOSIN HCL 0.4 MG CAP PO SCH (08:50)
[2017-10-11] MEDS: FERROUS GLUCONATE 324 MG TAB PO SCH ×2 (08:50→12:37)
[2017-10-11] MEDS: SOTALOL HCL 80 MG TAB PO SCH (08:50)
[2017-10-11] MEDS: POTASSIUM CITRATE 10 MEQ TAB PO SCH (08:50)
[2017-10-11] MEDS: MULTIVITAMIN TAB PO SCH (08:50)
[2017-10-11] MEDS: FUROSEMIDE 20 MG TAB PO SCH (08:51)
[2017-10-11] MEDS: PANTOprazole SOD 40 MG TAB PO SCH (08:51)
[2017-10-11 11:00] VITALS: Ht 177.8 cm; Wt 110.0 kg
--- NOTE | 2017-10-11 12:28 | Clinical Documentation Query ---
CLINICAL DOCUMENTATION QUERY 77-y/o male who has undergone left reverse TSR. On 10/09 patient was given dose of IV Lasix then restarted on normal PO dose of lasix. In your clinical opinion is this patient being managed for: ( ) Acute on chronic diastolic heart failure treated with IV Lasix ( ) Not Agree ( ) Other explanation of clinical findings (Please Explain) (x ) Unable to determine (Please Define) ( ) Need to Discuss Patient has multiple recent medical notes on [employer]. But no mention of heart failure as the reason for Lasix home medication. The cardiovascular history as I have outlined in my note has the cardiovascular problems that patient is known to have. The medical record reflects the following clinical findings, treatment, and risk factors. Clinical Indicators: As above. Per nursing assessments that day patient had inspiratory & expiratory wheezes. Daily Progress note 10/10 states, "previously on this hospital stay, patient's blood pressure has been low but asymptomatic and so oral Lasix was held. patient has left hand swelling and with multiple blood transfusions is at risk of fluid overload. 20 mg IV Lasix was ordered on . Resume oral Lasix starting 10/10/17. Continue Lasix." UO [id number] for that day. Echo from 06/28/15 showed LVEF of 65-70%, grade I diastolic dysfunction, borderline right heart enlargement, AV sclerosis, mild mitral regurgitation Treatment: IV Lasix Risk Factors: Age, CKD, HTN CAD, & holding of diuretic therapy initial through stay. Please clarify and document your clinical opinion in the progress notes and discharge summary. Terms such as "probable", "suspected", "likely", "questionable", "possible", or "still to be ruled out" are acceptable. IF IN AGREEMENT, YOU MUST DOCUMENT ABOVE DIAGNOSTIC STATEMENT IN DAILY PROGRESS NOTES AND DISCHARGE SUMMARY. This document is not part of the patient's record. Thank You, uM Ramirez, RN [phone]
--- NOTE | 2017-10-11 12:55 | Orthopedic Progress Note ---
Orthopedic Progress Note Date of Service Oct 11, 2017. Subjective Reports: feeling well, Denies: complaints Additional Notes: Sitting in bed eating lunch. No new complaints. Feeling well. Objective N/V intact, dressing C/D/I, A&O x3 Date Time Temp Pulse Resp B/P (MAP) Pulse Ox O2 Delivery O2 Flow Rate FiO2 10/11/17 07:41 Room Air 10/11/17 07:13 36.9 71 17 103/64 (77) 95 Room Air 10/11/17 00:04 Nasal Cannula 2.0 10/11/17 00:04 70 112/62 (79) 95 Nasal Cannula 2.0 10/10/17 23:07 37.2 67 20 90/55 (67) 93 Room Air 10/10/17 21:15 80 122/73 (89) 10/10/17 16:41 36.7 77 18 101/61 (74) 92 Room Air 10/10/17 15:30 Room Air Laboratory Results 24 Hours: Test 10/11/17 05:30 Hematocrit 26.9 % Hemoglobin 8.2 g/dL Assessment & Plan Assessment: Postop day4 s/p I&D/ Evac Hematoma left shoulder wound; POD 10 status post left reverse total shoulder arthroplasty post-op anemia; Hgb 8.2 today Pt now plans to return to home with services. Plan for dc to home today Inhouse Planning Pain Management: Morphine, Oxy IR DVT Prophylaxis: TEDs, SCDs, Coumadin
[2017-10-11 13:05] VITALS: BP 103/64; PULSE 71; TEMP 36.9; O2SAT 95
== END 2017-10-11 14:05 | disposition home health service (06) | DRG 483 ==
LOC: C.ACU 05:09 → C.3E 06:45 → UNDOADMIN 09:47 → ENRESERV 10:13
PROVIDERS: ADMIT Orthopaedic Surgery; ATTEND Orthopaedic Surgery
PROC: 0RRK00Z Replacement of Left Shoulder Joint with Reverse Ball and Socket Synthetic Substitute, Open Approach (ICD-10-PCS; principal; 2017-10-01 07:00)
PROC: 0RC Upper Joints, Extirpation (ICD-10-PCS; 2017-10-07)
DX: M19.012 Primary osteoarthritis, left shoulder (principal); D62 Acute posthemorrhagic anemia; N17.9 Acute kidney failure, unspecified; S40.012A Contusion of left shoulder, initial encounter; I12.9 Hypertensive chronic kidney disease with stage 1 through stage 4 chronic kidney disease, or unspecified chronic kidney disease; I25.10 Atherosclerotic heart disease of native coronary artery without angina pectoris; N18.3 Chronic kidney disease, stage 3 (moderate); E78.5 Hyperlipidemia, unspecified; K21.9 Gastro-esophageal reflux disease without esophagitis; M10.9 Gout, unspecified; G47.33 Obstructive sleep apnea (adult) (pediatric); I48.0 Paroxysmal atrial fibrillation; M96.1 Postlaminectomy syndrome, not elsewhere classified; E55.9 Vitamin D deficiency, unspecified; G62.9 Polyneuropathy, unspecified; G89.4 Chronic pain syndrome; Z96.653 Presence of artificial knee joint, bilateral; Z98.49 Cataract extraction status, unspecified eye; Z79.01 Long term (current) use of anticoagulants; Z79.82 Long term (current) use of aspirin; Z79.52 Long term (current) use of systemic steroids; Z86.73 Personal history of transient ischemic attack (TIA), and cerebral infarction without residual deficits; Z90.49 Acquired absence of other specified parts of digestive tract; X58.XXXA Exposure to other specified factors, initial encounter